=== PATIENT | female | born 1965 | race Caucasian/White ===

== ENCOUNTER 2016-08-28 17:46 | Inpatient (IN) | payer OTHER ==
[2016-08-28] MEDS ORDERED: SODIUM CHLORIDE 500 ML IV STA (19:35)
[2016-08-28 20:33] LABS: BASOPHIL 0.6 % (0-2.0); EOSINOPHIL 0.3 % (0-4.5); MCH 27.7 pg (25.7-33.7); MEAN CELL VOLUME 89.3 fl (80-96); MEAN PLT VOLUME 8.2 fl (7.5-11.1); NEUTROPHILS 77.1 % (42.8-82.8); PLATELET COUNT 108 K/MM3 (134-434); RDW 18.5 % (11.6-15.6); WHITE BLOOD COUNT 11.9 K/mm3 (4.0-10.0)
[2016-08-28 22:40] LABS: ALBUMIN 2.4 g/dl (3.4-5.0); ANION GAP 11 (8-16); BILIRUBIN,TOTAL 1.2 mg/dL (0.2-1.0); CALCIUM 9.2 mg/dL (8.5-10.1); CO2 30 mmol/L (21-32); CREATININE 3.3 mg/dL (0.55-1.02); GLUCOSE,RANDOM 111 mg/dL (74-106); SGOT/AST 29 U/L (15-37); SGPT/ALT 13 U/L (12-78); TOT PROT 6.8 g/dl (6.4-8.2)
[2016-08-28 23:05] LABS: ALK PHOS 1085 U/L (45-117)
--- NOTE | 2016-08-28 23:20 | PDOC ---
History of Present Illness - General Chief Complaint: SIRS, Suspected/Possible Stated Complaint: FEVER Time Seen by Provider: 08/28/16 19:21 History Source: Patient Exam Limitations: No Limitations - History of Present Illness Initial Comments: 08/28/16 23:15 51yo Female patient w/ significant PmHx: ESRD, Dialysis (M,W,F), Aortic Valve Replacement (2014), Anemia, HTN, Multiple Myeloma, Bone Marrow Transplant (2017 ) presents to ED c/o chronic cough, fever (103.0), weakness. Patient went to dialysis today and 1.7L of fluid removed. Patient denies any other complaints at this time. PCP- Dr. Munguia. Timing/Duration: getting worse Severity: moderate Modifying Factors: worse with: cold therapy, eating, immobilization, medication , movement, rest, other Associated Symptoms: reports: cough, fever/chills, weakness Aspirin Received prior to arrival: No: no aspirin today, unknown, 81 mg x 1, 81 mg x 2, 81 mg x 3, 81 mg x 4, 325 mg x 1, provided at home, provided by EMS, provided by ED [facility] Contraindications(Core Measure): No: Allergy, Other, Active Blding w/i 24 hrs., Plavix, Receiving Warfarin Beta Blake Contraindications(Core Measure): No: Not Prescribed, Allergy, Bradycardia (HR <60bpm), Advanced Heart Block, Pacemaker, Other Past History - Travel Traveled outside of the country in the last 30 days: No Close contact w/someone who was outside of country & ill: No - Past Medical History Allergies/Adverse Reactions: Allergies Allergy/AdvReac Type Severity Reaction Status Date / Time doxercalciferol Allergy Severe Low Blood Verified 08/28/16 18:48 [From Hectorol] Pressure Home Medications: Ambulatory Orders Hydralazine HCl [Apresoline -] 50 mg PO BID 10/16/11 Sevelamer Carbonate [Renvela -] 800 mg PO DAILY 09/02/13 Acyclovir [Zovirax -] 200 mg PO DAILY 12/25/14 Aspirin [Aspirin EC] 81 mg PO DAILY 12/25/14 Atorvastatin Ca [Lipitor] 10 mg PO HS 12/25/14 Cinacalcet HCl [Sensipar -] 90 mg PO DAILY 12/25/14 Levothyroxine [Synthroid -] 100 mcg PO DAILY 12/25/14 Metoprolol Tartrate 50 mg PO BID 12/25/14 Pomalidomide [Pomalyst] 2 mg PO DAILY 12/25/14 Vit B Cmplx No3/FA/C/Biot/Zinc [Nephplex Rx Tablet] 1 each PO DAILY 12/25/14 Clopidogrel Bisulfate [Plavix -] 75 mg PO DAILY #30 tablet 01/12/15 Ferrous Sulfate 325 mg PO DAILY #30 tablet 01/12/15 Anemia: Yes Asthma: No Cancer: Yes (multiple myeloma) Cardiac Disorders: Yes (valve replacement done in 2014) CVA: No COPD: No CHF: No Dementia: No Diabetes: No Dialysis: Yes (m/w/f) GI Disorders: No Disorders: Yes (dyalisis sun-sun-sun) HTN: Yes Hypercholesterolemia: Yes Liver Disease: No Suicide Attempt (Hx): No Seizures: Yes (one time in 2006) Thyroid Disease: Yes (hypothyroid) - Surgical History Cardiac Surgery: Yes (valve repleacement 11/19/2014) - Immunization History Immunization Up to Date: Yes - Psycho/Social/Smoking Cessation Hx Anxiety: No Suicidal Ideation: No Smoking Status: No Smoking History: Never smoked Have you smoked in the past 12 months: No Number of Cigarettes Smoked Daily: 0 Information on smoking cessation initiated: No Hx Alcohol Use: No Drug/Substance Use Hx: No Substance Use Type: None Hx Substance Use Treatment: No Review of Systems - Review of Systems Able to Perform ROS?: Yes Is the patient limited German proficient: No Constitutional: Yes: Chills, Fever, Weakness Respiratory: Yes: Cough Cardiac (ROS): No: Chest Pain ABD/GI: No: Constipated, Diarrhea, Nausea, Poor Appetite, Poor Fluid Intake, Vomiting, Abdominal cramping : No: Dysuria, Hematuria Musculoskeletal: No: Back Pain Integumentary: No: Bruising, Erythema, Sweating Neurological: No: Headache, Seizure, Ataxia, Dizziness All Other Systems: Reviewed and Negative *Physical Exam - Vital Signs Last Vital Signs Temp Pulse Resp BP Pulse Ox 99.1 F 92 H 18 139/67 99 08/28/16 17:46 08/28/16 17:46 08/28/16 17:46 08/28/16 17:46 08/28/16 17:46 - Physical Exam General Appearance: Yes: Nourished, Appropriately Dressed, Mild Distress. No: Apparent Distress, Moderate Distress, Severe Distress HEENT: positive: EOMI, JUAN JOSE, Normal ENT Inspection, Normal Voice, Symmetrical, TMs Normal, Pharynx Normal. negative: Pharyngeal Erythema, Tonsillar Exudate, Tonsillar Erythema, Nasal Congestion, Rhinorrhea, TM Bulging, TM Dull, TM Erythema Neck: positive: Trachea midline, Supple. negative: Stridor, Lymphadenopathy (R) , Lymphadenopathy (L) Respiratory/Chest: positive: Normal Breath Sounds, Decreased Breath Sounds. negative: Lungs Clear, Respiratory Distress, Accessory Muscle Use, Labored Respiration, Rapid RR, Stridor, Wheezing Cardiovascular: positive: Regular Rhythm, Regular Rate Gastrointestinal/Abdominal: positive: Normal Bowel Sounds, Soft. negative: Distended, Guarding, Rebound, Tenderness Musculoskeletal: positive: Normal Inspection. negative: CVA Tenderness Extremity: positive: Normal Capillary Refill, Normal Inspection, Normal Range of Motion. negative: Pedal Edema, Swelling, Calf Tenderness, Erythema, Inflammation Integumentary: positive: Normal Color, Dry, Warm. negative: Erythema Neurologic: positive: burlap roll coverer II-XII NML intact, Fully Oriented, Alert, Normal Mood/ Affect, Normal Response, Motor Strength 5/5 ED Treatment Course - LABORATORY CBC & Chemistry Diagram: 08/28/16 20:17 08/28/16 20:17 - ADDITIONAL ORDERS Additional order review: Laboratory Results 08/28/16 08/28/16 20:24 20:17 Sodium 139 Potassium 3.6 Chloride 98 Carbon Dioxide 30 Anion Gap 11 BUN 20 H D Creatinine 3.3 H D Creat Clearance w eGFR 14.62 Random Glucose 111 H D Lactic Acid 2.7 H* Calcium 9.2 Total Bilirubin 1.2 H D AST 29 D ALT 13 D Alkaline Phosphatase 1085 H D Creatine Kinase 21 L Total Protein 6.8 Albumin 2.4 L D 08/28/16 20:17 RBC 2.72 L MCV 89.3 MCHC 31.0 L RDW 18.5 H MPV 8.2 Neutrophils % 77.1 D Lymphocytes % 12.2 D Monocytes % 9.8 Eosinophils % 0.3 D Basophils % 0.6 - RADIOLOGY Radiology Studies Ordered: Category Date Time Status CHEST X-RAY PORTABLE* [RAD] Stat Radiology 08/28/16 19:35 Taken - Medications Given in the ED: ED Medications Discontinued Medications Generic Name Dose Route Start Last Admin Trade Name Freq PRN Reason Stop Dose Admin Sodium Chloride 500 mls @ 500 mls/hr 08/28/16 19:35 08/28/16 20:18 Normal Saline - IV 08/28/16 20:34 500 mls/hr ASDIR STA Administration *DC/Admit/Observation/Transfer Diagnosis at time of Disposition: Fever of unknown origin Leukocytosis Qualifiers: Leukocytosis type: other Qualified Code(s): D72.828 - Other elevated white blood cell count - Discharge Dispostion Condition at time of disposition: Fair Admit: Yes
[2016-08-29] MEDS ORDERED: CEFEPIME HCL 1 GM VIAL (RESTRICTED TO ID) IVPB ONE (00:56)
[2016-08-29] MEDS ORDERED: VANCOMYCIN 1,000 MG in DEXTROSE 5%-WATER - 250 ML IVPB ONE (00:57)
[2016-08-29] MEDS ORDERED: CEFEPIME 100 ML IVPB ONE (01:05)
[2016-08-29] MEDS ORDERED: VANCOMYCIN 1 GRAM (PRE-DOCKED) 250 ML IVPB ONE (01:41)
[2016-08-29 04:03] VITALS: BMI 17.8
[2016-08-29] MEDS ORDERED: ACETAMINOPHEN 325 MG TABLET (FP) PO PRN (05:27)
[2016-08-29] MEDS: LEVOTHYROXINE NA 100 MCG TABLET (FP) PO SCH (06:21)
[2016-08-29] MEDS: SEVELAMER CARBONATE 800 MG TAB (FP) PO SCH ×3 (09:00→17:36)
[2016-08-29] MEDS: hydrALAZINE HCL 50 MG TABLET (FP) PO SCH ×2 (09:07→21:44)
[2016-08-29] MEDS: METOPROLOL TARTRATE 50 MG TABLET (FP) PO SCH ×2 (09:07→21:44)
[2016-08-29] MEDS: ASPIRIN COATED 81 MG TABLET.EC PO SCH (09:08)
[2016-08-29] MEDS ORDERED: AZITHROMYCIN IVPB 500 MG in DEXTROSE 5%-WATER - 250 ML IVPB SCH (10:30)
--- NOTE | 2016-08-29 10:33 | PN ---
Progress Note (short form) - Note Progress Note: ID Consult dictated 51 year old female PMH ESRD, MM s/p bone marrow transplant 06/2016 admitted from HD with fever, cough. CXR possible retrocardiac infiltrate Pneumonia Possible sepsis secondary to pneumonia ESRD MM s/p bone marrow transplant 06/2016 S/P AVR 11/2014 Elevated Alk phos ? MM Lactic acidosis Thrombocytopenia Await c/s Stat doses vanco/ cefepime given Continue empiric zithromax/ ceftriaxone
--- NOTE | 2016-08-29 10:48 | HP ---
Admitting History and Physical - Admission Chief Complaint: fever History of Present Illness: 51yo Female patient w/ significant PmHx: ESRD, Dialysis (M,W,F), Aortic Valve Replacement (2014), Anemia, HTN, Multiple Myeloma, Bone Marrow Transplant (2016 ) presents to ED c/o chronic cough, fever (103.0), weakness. Patient went to dialysis today and 1.7L of fluid removed. Patient denies any other complaints at this time. PCP- Dr. Munguia inER WBC 11.0 lactic 2.7, plt 108 fever 100.0 got vanco and cefepime History Source: Patient, Medical Record - Past Medical History Cardiovascular: Yes: HTN, Murmur Pulmonary: Yes: Other (SOB) Renal/: Yes: Renal Failure, Hemodialysis ...: No Heme/Onc: Yes: Anemia (due to chronic disease), Thrombocytopenia, Other ( multiple myelomaa s/p BMT 2007, s/p CTx ([facility])) Infectious Disease: Yes: C-Diff - Past Surgical History Past Surgical History: Yes: AV Fistula/Graft (s/p unsuccessful AVF thrombectomy and Permacath placement 2 weeks ago. S/p angioplasty 12/24/[address] Marshall), CABG (s/p AVR 11/19/14 at [facility]), - Smoking History Smoking history: Never smoked Have you smoked in the past 12 months: No Aproximately how many cigarettes per day: 0 - Alcohol/Substance Use Hx Alcohol Use: No History of Substance Use: reports: None - Social History ADL: Independent Occupation: disabled History of Recent Travel: No Home Medications - Allergies Allergies/Adverse Reactions: Allergies Allergy/AdvReac Type Severity Reaction Status Date / Time doxercalciferol Allergy Severe Low Blood Verified 08/28/16 18:48 [From Hectorol] Pressure - Home Medications Home Medications: Ambulatory Orders Hydralazine HCl [Apresoline -] 50 mg PO BID 10/16/11 Aspirin [Aspirin EC] 81 mg PO DAILY 12/25/14 Levothyroxine [Synthroid -] 100 mcg PO DAILY 12/25/14 Metoprolol Tartrate 50 mg PO BID 12/25/14 Family Disease History - Family Disease History Family Disease History: Other: Father ( of emphysema), Mother ( of dementia), Brother (healthy and living), Sister (healthy and living) Review of Systems - Review of Systems Constitutional: reports: Fever, Weakness Physical Examination Vital Signs: Vital Signs Temperature 98.0 F 08/29/16 09:00 Pulse Rate 83 08/29/16 09:00 Respiratory Rate 18 08/29/16 09:00 Blood Pressure 125/67 08/29/16 09:00 O2 Sat by Pulse Oximetry (%) 98 08/29/16 09:00 Constitutional: Yes: Calm, Thin Cardiovascular: Yes: Regular Rate and Rhythm, Murmur, S1, S2 Respiratory: Yes: Other (crackles on right side) Gastrointestinal: Yes: Soft Extremities: Yes: Other (bruit on left arm) Edema: No Neurological: Yes: Alert, Oriented Imaging - Results Chest X-ray: Report Reviewed (posible retrocardiac infiltrate) Problem List - Problems (1) Fever, unknown origin Assessment/Plan: cultures pending seen by ID emperic abx lactic acid trending down Code(s): R50.9 - FEVER, UNSPECIFIED (2) Leukocytosis Assessment/Plan: emperic abx per ID Code(s): D72.829 - ELEVATED WHITE BLOOD CELL COUNT, UNSPECIFIED Qualifiers: Leukocytosis type: other Qualified Code(s): D72.828 - Other elevated white blood cell count (3) Anemia in ESRD (end-stage renal disease) Assessment/Plan: prbc renal iron studies Code(s): N18.6 - END STAGE RENAL DISEASE D63.1 - ANEMIA IN CHRONIC KIDNEY DISEASE (4) ESRD on hemodialysis Assessment/Plan: HD per renal Code(s): N18.6 - END STAGE RENAL DISEASE Z99.2 - DEPENDENCE ON RENAL DIALYSIS (5) Hypothyroidism Assessment/Plan: synthroid check tsh Code(s): E03.9 - HYPOTHYROIDISM, UNSPECIFIED (6) Multiple myeloma Assessment/Plan: heme eval Code(s): C90.00 - MULTIPLE MYELOMA NOT HAVING ACHIEVED REMISSION (7) S/P AVR (aortic valve replacement) Assessment/Plan: on asa alan get cardio to see patient as well Code(s): Z95.2 - PRESENCE OF PROSTHETIC HEART VALVE
--- NOTE | 2016-08-29 11:51 | CONS ---
DATE OF CONSULTATION: HISTORY: The patient is a 51-year-old female with a history of recurrent multiple myeloma, end-stage renal disease on hemodialysis, history of aortic valve replacement now evaluated for fever. The patient was receiving her hemodialysis session when she was noted to have fever to 102. She was also noted to have cough productive of whitish sputum. She was transferred to the emergency room where chest x-ray showed possible retrocardiac infiltrate. She was empirically treated with vancomycin and cefepime. The patient reports cough productive of whitish sputum. She denies any chest pain or hemoptysis. No complaints of dyspnea. She denies any shaking chills. The patient denies any ill contacts. No recent travel. No recent antibiotic therapy. She was hospitalized in June 2016 for a bone marrow transplant. PAST MEDICAL HISTORY: Positive for end-stage renal disease on hemodialysis, history of multiple myeloma status post bone marrow transplant in 2007 and again in 2016 at [place], history of aortic valve replacement for congenital heart problem 2014, hypertension, chronic anemia, hypothyroidism. PAST SURGICAL HISTORY: Status post hysterectomy, status post left AV fistula. ALLERGIES: DOXERCALCIFEROL. MEDICATIONS: Tylenol, Lopressor, Apresoline, aspirin, Synthroid. SOCIAL HISTORY: Originally from the [place] and has been living here for years. Nonsmoker, nondrinker. REVIEW OF SYSTEMS: Neurologic: No loss of consciousness, seizure activity, focal weakness. Cardiac: Status post aortic valve replacement. No chest pain or palpitations. Respiratory: As per HPI. Gastrointestinal: Positive for diarrhea. No vomiting. Genitourinary: End-stage renal disease on hemodialysis. The patient is anuric. LABORATORY DATA: White count 11.9, hematocrit 24.3, platelet count 108, lactic acid 2.7, BUN 30, creatinine 3.3. Total bilirubin 1.2, alkaline phosphatase 1085, AST 29, lactic acid 2.7. PHYSICAL EXAMINATION: General: The patient is awake and alert. She is not acutely toxic appearing in no acute distress. Vital Signs: Temperature 98, T-max 100, blood pressure 130/70, pulse 90 and regular, respirations 20 per minute. HEENT: The patient is anicteric. Positive alopecia. Oropharynx negative. Neck: Supple. No palpable nodes. Heart: Sound S1, S2. A 2/6 pansystolic murmur. Lungs: Crepitations at the left base. Abdomen: Soft. No tenderness elicited. No mass, rebound, or rigidity. Extremities: Negative for edema. AV fistula present left upper extremity. IMPRESSION: A 51-year-old female with a history of end-stage renal disease on hemodialysis, multiple myeloma status post bone marrow transplant, status post aortic valve replacement now admitted from hemodialysis with fever and cough. 1. Retrocardiac infiltrate. 2. Possible sepsis secondary to pneumonia. 3. End-stage renal disease on hemodialysis. 4. Multiple myeloma status post bone marrow transplant June 2016. 5. Status post aortic valve replacement November 2014. 6. Elevated alkaline phosphatase possibly ectopy myeloma, rule out biliary tract disease. 7. Lactic acidosis. 8. Thrombocytopenia. PLAN: Await blood cultures. Obtain sputum culture, urine Legionella, and pneumococcal antigens. Empiric antibiotic coverage with Zithromax and ceftriaxone pending cultures. Abdominal sonogram to evaluate biliary tract. We will follow. Thank you for the kind referral. FEDE DEGROOT M.D. [id number]
[2016-08-29 11:54] LABS: BASOPHIL 0.7 % (0-2.0); EOSINOPHIL 1.1 % (0-4.5); MCH 28.5 pg (25.7-33.7); MCHC 31.8 g/dl (32.0-36.0); MEAN CELL VOLUME 89.6 fl (80-96); MEAN PLT VOLUME 8.9 fl (7.5-11.1); NEUTROPHILS 75.4 % (42.8-82.8); PLATELET COUNT 85 K/MM3 (134-434); RDW 18.3 % (11.6-15.6); WHITE BLOOD COUNT 8.6 K/mm3 (4.0-10.0)
[2016-08-29] MEDS: CEFTRIAXONE 100 ML IVPB SCH (11:55)
--- NOTE | 2016-08-29 11:56 | CONSULT ---
Consult Consult Specialty:: Nephrology ( Drs. Cheema/ Ross) Referred by:: Dr. Ho Reason for Consultation:: Patient has h/o ESRD, on HD. - History of Present Illness History of Present Illness: 51yo Female patient w/ significant PmHx: ESRD, Dialysis (M,W,F), Aortic Valve Replacement (2014), Anemia, HTN, Multiple Myeloma, Recent Bone Marrow Transplant (July 2016) presents to ED c/o cough, fever (103.0), weakness. Patient went to dialysis yesterday [place] weak. And came to the ER. HD was uneventful. - History Source History Provided By: Patient, Medical Record Limitations to Obtaining History: No Limitations - Past Medical History Cardio/Vascular: Yes: HTN, Murmur Pulmonary: Yes: Other (SOB) Renal/: Yes: Renal Failure, Hemodialysis ...: No Heme/Onc: Yes: Anemia, Myeloproliferative Synd Infectious Disease: Yes: C-Diff - Past Surgical History Past Surgical History: Yes: AV Fistula/Graft (s/p unsuccessful AVF thrombectomy and Permacath placement 2 weeks ago. S/p angioplasty 12/24/[address] Marshall), CABG (s/p AVR 11/19/14 at [facility]), - Alcohol/Substance Use Hx Alcohol Use: No History of Substance Use: reports: None - Smoking History Smoking history: Never smoked Have you smoked in the past 12 months: No Aproximately how many cigarettes per day: 0 - Social History ADL: Independent Occupation: disabled History of Recent Travel: No Home Medications - Allergies Allergies/Adverse Reactions: Allergies Allergy/AdvReac Type Severity Reaction Status Date / Time doxercalciferol Allergy Severe Low Blood Verified 08/28/16 18:48 [From Hectorol] Pressure - Home Medications Home Medications: Ambulatory Orders Hydralazine HCl [Apresoline -] 50 mg PO BID 10/16/11 Aspirin [Aspirin EC] 81 mg PO DAILY 12/25/14 Levothyroxine [Synthroid -] 100 mcg PO DAILY 12/25/14 Metoprolol Tartrate 50 mg PO BID 12/25/14 Family Disease History - Family Disease History Family Disease History: Other: Father ( of emphysema), Mother ( of dementia), Brother (healthy and living), Sister (healthy and living) Review of Systems - Review of Systems Constitutional: reports: Fever, Malaise, Weakness Respiratory: reports: Cough, SOB Gastrointestinal: reports: Abdominal Pain Musculoskeletal: reports: Back Pain Neurological: reports: No Symptoms Endocrine: reports: No Symptoms Psychiatric: reports: No Symptoms Physical Exam Vital Signs: Vital Signs Temperature 98.0 F 08/29/16 09:00 Pulse Rate 83 08/29/16 09:00 Respiratory Rate 18 08/29/16 09:00 Blood Pressure 125/67 08/29/16 09:00 O2 Sat by Pulse Oximetry (%) 98 08/29/16 09:00 Constitutional: Yes: Anxious HENT: Yes: Normocephalic Cardiovascular: Yes: S1, S2 Respiratory: Yes: Regular, Diminished, Rales, Rhonchi Gastrointestinal: Yes: Normal Bowel Sounds, Soft Renal/: No: CVA Tenderness - Left, CVA Tenderness - Right Musculoskeletal: Yes: Back Pain, Muscle Pain Neurological: Yes: Alert, Oriented Psychiatric: Yes: Oriented Problem List - Problems (1) Fever, unknown origin Code(s): R50.9 - FEVER, UNSPECIFIED (2) Leukocytosis Code(s): D72.829 - ELEVATED WHITE BLOOD CELL COUNT, UNSPECIFIED Qualifiers: Leukocytosis type: other Qualified Code(s): D72.828 - Other elevated white blood cell count (3) Anemia in ESRD (end-stage renal disease) Code(s): N18.6 - END STAGE RENAL DISEASE D63.1 - ANEMIA IN CHRONIC KIDNEY DISEASE (4) ESRD on hemodialysis Code(s): N18.6 - END STAGE RENAL DISEASE Z99.2 - DEPENDENCE ON RENAL DIALYSIS (5) Hypertension Code(s): I10 - ESSENTIAL (PRIMARY) HYPERTENSION (6) Multiple myeloma Code(s): C90.00 - MULTIPLE MYELOMA NOT HAVING ACHIEVED REMISSION Assessment/Plan 51 y/o female admitted with fever and cough, and possible Acute respiratory Infection. Started on Antibiotics. Profound Anemia, in this patient with MM, and recent BM transplant should alert us to look for unusual causes for the anemia. ESRD, next HD tomorrow. Will transfuse on HD if the Hgb remains low. Concur with the Abx course. Thank you. Preeti Cheema MD
[2016-08-29] MEDS: AZITHROMYCIN IVPB 500 MG/250 ML D5W PRE-DOCKED IVPB SCH (12:40)
--- NOTE | 2016-08-29 14:22 | CON.CARD ---
Consult Consult Specialty:: cardiology Referred by:: Vic Reason for Consultation:: Aortic valve replacement - History of Present Illness Chief Complaint: Fever and cough History of Present Illness: The patient is a 51-year-old female, with a history of hypertension, end-stage renal disease on hemodialysis, status post bioprosthetic aortic valve replacement in 2014, multiple myeloma, status post bone marrow transplant 06/19, chronic anemia, now presenting with high grade fever and a chronic cough. The patient denied chills and right wrist. Also denied shortness of breath, chest pains, palpitations. The patient is currently comfortable, sitting at the bedside. - History Source History Provided By: Patient, Medical Record Limitations to Obtaining History: No Limitations - Past Medical History Cardio/Vascular: Yes: HTN, Murmur Pulmonary: Yes: Other (SOB) Renal/: Yes: Renal Failure, Hemodialysis ...: No Infectious Disease: Yes: C-Diff - Past Surgical History Past Surgical History: Yes: AV Fistula/Graft (s/p unsuccessful AVF thrombectomy and Permacath placement 2 weeks ago. S/p angioplasty 12/24/[address] Marshall), CABG (s/p AVR 11/19/14 at [facility]), - Alcohol/Substance Use Hx Alcohol Use: No History of Substance Use: reports: None - Smoking History Smoking history: Never smoked Have you smoked in the past 12 months: No Aproximately how many cigarettes per day: 0 - Social History ADL: Independent Occupation: disabled History of Recent Travel: No Home Medications - Allergies Allergies/Adverse Reactions: Allergies Allergy/AdvReac Type Severity Reaction Status Date / Time doxercalciferol Allergy Severe Low Blood Verified 08/28/16 18:48 [From Hectorol] Pressure - Home Medications Home Medications: Ambulatory Orders Hydralazine HCl [Apresoline -] 50 mg PO BID 10/16/11 Aspirin [Aspirin EC] 81 mg PO DAILY 12/25/14 Levothyroxine [Synthroid -] 100 mcg PO DAILY 12/25/14 Metoprolol Tartrate 50 mg PO BID 12/25/14 Family Disease History - Family Disease History Family Disease History: Other: Father ( of emphysema), Mother ( of dementia), Brother (healthy and living), Sister (healthy and living) Review of Systems - Review of Systems Constitutional: reports: Fever Eyes: reports: No Symptoms HENT: reports: No Symptoms Neck: reports: No Symptoms Cardiovascular: reports: No Symptoms Respiratory: reports: Cough Gastrointestinal: reports: No Symptoms Genitourinary: reports: No Symptoms Breasts: reports: No Symptoms Reported Musculoskeletal: reports: Muscle Weakness Integumentary: reports: No Symptoms Neurological: reports: No Symptoms Endocrine: reports: No Symptoms Hematology/Lymphatic: reports: No Symptoms Psychiatric: reports: No Symptoms - Risk Factors Known Risk Factors: Yes: Hypertension Vital Signs: Vital Signs Temperature 98.0 F 08/29/16 09:00 Pulse Rate 83 08/29/16 09:00 Respiratory Rate 18 08/29/16 09:00 Blood Pressure 125/67 08/29/16 09:00 O2 Sat by Pulse Oximetry (%) 98 08/29/16 09:00 Constitutional: Yes: No Distress, Calm Eyes: Yes: WNL HENT: Yes: WNL Neck: Yes: WNL Respiratory: Yes: WNL Gastrointestinal: Yes: WNL Renal/: Yes: WNL Cardiovascular: Yes: Regular Rate and Rhythm JVD: No Carotid Bruit: No PMI: Non-Displaced Heart Sounds: Yes: S1, S2 Murmur: Yes: Systolic Murmur, Grade 2 Musculoskeletal: Yes: WNL Extremities: Yes: WNL Edema: No Peripheral Pulses WNL: Yes (normal pulses) Integumentary: Yes: WNL Neurological: Yes: WNL ...Motor Strength: WNL Psychiatric: Yes: WNL - Other Data Labs, Other Data: CBC, BMP 08/29/16 11:15 Assessment/Plan 51-year-old female with multiple medical problems, status post bioprosthetic aortic valve replacement in 2014, immunocompromised, now presenting with fevers and a chronic cough. Blood cultures are pending. The patient is hemodynamically stable and fairly comfortable. Would continue current regimen. Waiting for blood culture results. There is no clinical evidence of endocarditis at this point. Please repeat the echocardiogram to reevaluate the prostatic valve. Will follow.
--- NOTE | 2016-08-29 21:36 | PN ---
Progress Note (short form) - Note Progress Note: Consult dictated 51 year old s/p bone marrow transplant in 2007 and on June 28, 2016. On pomalidomide therapy post transplant. Patient presents with fever to 103 , cough and possible pulmonary infiltrate. ESRD on H.D. and s/p bioprosthetic aortic valve replacement in 2014. [facility] need to check with [facility] re details of prior treatment . Has markedly elevated alk phos ( >1000) and in 2014 - level was 229. (Note myeloma classically does not cause alk phos elevation. --?? Pagets, , ??? renal osteodystrophy, ?? other --Check GGTP) Thrombocytopenia may be secondary to myeloma, may be secondary to recent transplant , may be secondary to pomalidomide with infection super-imposed. Similarly anemia may be secondary to myeloma, ,ESRD, s/p transplant , infection. Will need to get base line levels from [facility].
[2016-08-30] MEDS: LEVOTHYROXINE NA 100 MCG TABLET (FP) PO SCH (06:01)
--- NOTE | 2016-08-30 06:30 | CONS ---
DATE OF CONSULTATION: 08/29/2016 HISTORY OF PRESENT ILLNESS: This is a 51-year-old woman . She has a history of multiple myeloma status post transplants in 2007 and then in June,. She has a history of end-stage renal disease on dialysis. She has a history of an aortic valve replacement with bioprosthetic valve. She has a history of anemia, hypertension. She presented with cough and fever to 103 degrees. She was seen in dialysis and was advised admission. PAST HISTORY: As aforementioned, end-stage renal disease, aortic valve replacement bioprosthetic valve in 2014, myeloma transplants in June 28, 2016, and 2008, multiple myeloma. ALLERGIES: Include DOXERCALCIFEROL. MEDICINES ON ADMISSION: Hydralazine, Renvela, Zovirax, aspirin, Lipitor, Sensipar, Synthroid, metoprolol, pomalidomide, vitamin B, Plavix, and iron. REVIEW OF SYSTEMS: No headaches, diplopia, cough, whitish sputum. No chest pain. Some GI symptoms with diarrhea. No significant bone pains. PAST SURGICAL HISTORY: Includes aortic valve replacement November 19, 2014. SOCIAL HISTORY: Patient is a nonsmoker/nondrinker. CURRENT PHYSICAL EXAMINATION: Vital signs: BP 104/63, pulse 71, respiratory rate 16, temperature 98.2. HEENT: Alopecia, SORAIDA, EOM intact. Oropharynx unremarkable. Lungs: Relatively clear. Cardiac: RSR. Sternal median sternotomy. Breasts: Nodularity bilaterally. Abdomen: With ventral hernia. Extremities: No significant edema. LABORATORY: WBC 8.6, hematocrit 24, platelets 85,000, 75 neutrophils. Chemistries 139 sodium K36, chloride 98, CO2 of 30, BUN 20, creatinine 3.3 on dialysis, calcium 9.2, bilirubin 1.2, lactate 2.7, AST 29, ALT 13, alkaline phosphatase 10.85, CPK 21, protein 6.8, albumin 2.4. It should be noted that in 2014, alkaline phosphatase was 229. IMPRESSION: This is a 51-year-old with history of multiple myeloma, status post transplants in 2007 and again June 28, 2016, status post bioprosthetic aortic valve replacement, who enters with cough, questionable infiltrate, and 103 temperature. Patient is with end-stage renal disease on hemodialysis. Patient has elevation of alkaline phosphatase which may be bone related. She may have underlying Pagets or other etiologies. Patient is also with hematocrit of 24% and platelet count of 108 and 85,000. This may be secondary to pomalidomide and/or infection and/or post transplant. PLAN: Monitor CBC. Need to get details of prior laboratories from [facility]. Check GGTP. RADHA REDD M.D. [id number]
[2016-08-30 07:21] LABS: BASOPHIL 1.2 % (0-2.0); EOSINOPHIL 4.2 % (0-4.5); MCH 28.5 pg (25.7-33.7); MCHC 32.6 g/dl (32.0-36.0); MEAN CELL VOLUME 87.5 fl (80-96); MEAN PLT VOLUME 8.8 fl (7.5-11.1); NEUTROPHILS 66.1 % (42.8-82.8); PLATELET COUNT 86 K/MM3 (134-434); RDW 18.9 % (11.6-15.6)
[2016-08-30 07:52] LABS: ALBUMIN 2.1 g/dl (3.4-5.0); ANION GAP 12 (8-16); CALCIUM 8.9 mg/dL (8.5-10.1); CO2 26 mmol/L (21-32); GLUCOSE,RANDOM 72 mg/dL (74-106)
[2016-08-30 07:54] LABS: THYROID STIMULATING HORMONE 0.82 uIU/ml (0.358-3.74)
[2016-08-30 08:00] LABS: ALK PHOS 962 U/L (45-117); BILIRUBIN,TOTAL 0.8 mg/dL (0.2-1.0); CREATININE 5.1 mg/dL (0.55-1.02); SGOT/AST 27 U/L (15-37); SGPT/ALT 12 U/L (12-78); TOT PROT 6.1 g/dl (6.4-8.2)
--- NOTE | 2016-08-30 08:03 | PN ---
Progress Note, Physician - Current Medication List Current Medications: Active Medications Acetaminophen (Tylenol -) 650 mg PO Q6H PRN PRN Reason: FEVER OR PAIN Aspirin (Ecotrin -) 81 mg PO DAILY [facility] Last Admin: 08/29/16 09:08 Dose: 81 mg Azithromycin (Zithromax 500mg Ivpb (Pre-Docked)) 500 mg IVPB DAILY [facility] Last Admin: 08/29/16 12:40 Dose: 500 mg Epoetin Bg (Procrit -) 10,000 unit SQ ONCE ONE Stop: 08/30/16 12:04 Hydralazine HCl (Apresoline -) 50 mg PO BID [facility] Last Admin: 08/29/16 21:44 Dose: 50 mg Ceftriaxone Sodium (Rocephin 2gm Ivpb (Pre-Docked)) 100 mls @ 200 mls/hr IVPB DAILY [facility] Last Admin: 08/29/16 11:55 Dose: 200 mls/hr Levothyroxine Sodium (Synthroid -) 100 mcg PO DAILY@0700 [facility] Last Admin: 08/30/16 06:01 Dose: 100 mcg Metoprolol Tartrate (Lopressor -) 50 mg PO BID [facility] Last Admin: 08/29/16 21:44 Dose: 50 mg Sevelamer Carbonate (Renvela -) 800 mg PO TIDCM [facility] Last Admin: 08/29/16 17:36 Dose: Not Given - Objective Vital Signs: Vital Signs Temperature 98.1 F 08/30/16 06:58 Pulse Rate 79 08/30/16 06:58 Respiratory Rate 20 08/30/16 06:58 Blood Pressure 127/69 08/30/16 06:58 O2 Sat by Pulse Oximetry (%) 100 08/29/16 21:00 Cardiovascular: Yes: Murmur, S1, S2 Respiratory: Yes: Diminished, On Nasal O2, Rhonchi Gastrointestinal: Yes: Normal Bowel Sounds, Soft Labs: CBC, BMP 08/30/16 05:35 Problem List - Problems (1) Anemia in ESRD (end-stage renal disease) Assessment/Plan: S/P PRBC MONITOR LABS Code(s): N18.6 - END STAGE RENAL DISEASE D63.1 - ANEMIA IN CHRONIC KIDNEY DISEASE (2) ESRD on hemodialysis Assessment/Plan: RENAL ON CASE DIALYSIS Code(s): N18.6 - END STAGE RENAL DISEASE Z99.2 - DEPENDENCE ON RENAL DIALYSIS (3) Multiple myeloma Assessment/Plan: PER ONCOLOGY Code(s): C90.00 - MULTIPLE MYELOMA NOT HAVING ACHIEVED REMISSION (4) S/P AVR (aortic valve replacement) Assessment/Plan: ECHO BC Code(s): Z95.2 - PRESENCE OF PROSTHETIC HEART VALVE (5) Pneumonia Assessment/Plan: IV ABX ID ON CASE F/U IMAGING Code(s): J18.9 - PNEUMONIA, UNSPECIFIED ORGANISM (6) Alkaline phosphatase elevation Assessment/Plan: ONCOLOGY ON CASE AWAIT RECORDS FROM [facility] Code(s): R74.8 - ABNORMAL LEVELS OF OTHER SERUM ENZYMES
[2016-08-30 08:10] LABS: FERRITIN 1984.046 ng/ml (6.9-282.5)
[2016-08-30] MEDS: SEVELAMER CARBONATE 800 MG TAB (FP) PO SCH ×3 (08:30→17:41)
[2016-08-30] MEDS ORDERED: EPOETIN ALFA 10,000 UNIT/1 ML VIAL IVPUSH ONE (12:03)
--- NOTE | 2016-08-30 12:25 | PN ---
Progress Note, Physician Chief Complaint: The patient is feeling a little better. Still coughing. Afebrile. History of Present Illness: 51yo Female patient w/ significant PmHx: ESRD, Dialysis (M,W,F), Aortic Valve Replacement (2014), Anemia, HTN, Multiple Myeloma, Recent Bone Marrow Transplant (July 2016) Dr. Smith's notes reviewed. - Current Medication List Current Medications: Active Medications Acetaminophen (Tylenol -) 650 mg PO Q6H PRN PRN Reason: FEVER OR PAIN Aspirin (Ecotrin -) 81 mg PO DAILY [facility] Last Admin: 08/29/16 09:08 Dose: 81 mg Azithromycin (Zithromax 500mg Ivpb (Pre-Docked)) 500 mg IVPB DAILY [facility] Last Admin: 08/29/16 12:40 Dose: 500 mg Hydralazine HCl (Apresoline -) 50 mg PO BID [facility] Last Admin: 08/29/16 21:44 Dose: 50 mg Ceftriaxone Sodium (Rocephin 2gm Ivpb (Pre-Docked)) 100 mls @ 200 mls/hr IVPB DAILY [facility] Last Admin: 08/29/16 11:55 Dose: 200 mls/hr Levothyroxine Sodium (Synthroid -) 100 mcg PO DAILY@0700 [facility] Last Admin: 08/30/16 06:01 Dose: 100 mcg Metoprolol Tartrate (Lopressor -) 50 mg PO BID [facility] Last Admin: 08/29/16 21:44 Dose: 50 mg Sevelamer Carbonate (Renvela -) 800 mg PO TIDCM [facility] Last Admin: 08/30/16 08:30 Dose: Not Given - Objective Vital Signs: Vital Signs Temperature 98 F 08/30/16 10:00 Pulse Rate 81 08/30/16 10:00 Respiratory Rate 20 08/30/16 10:00 Blood Pressure 107/62 08/30/16 10:00 O2 Sat by Pulse Oximetry (%) 100 08/29/16 21:00 Constitutional: Yes: Calm, Anxious, Pallor Eyes: Yes: Conjunctiva Clear Neck: Yes: Trachea Midline Cardiovascular: Yes: S1, S2 Respiratory: Yes: Diminished, Rhonchi, SOB Gastrointestinal: Yes: Normal Bowel Sounds Labs: CBC, BMP 08/30/16 05:35 08/30/16 05:35 Problem List - Problems (1) Fever, unknown origin Code(s): R50.9 - FEVER, UNSPECIFIED (2) Leukocytosis Code(s): D72.829 - ELEVATED WHITE BLOOD CELL COUNT, UNSPECIFIED Qualifiers: Leukocytosis type: other Qualified Code(s): D72.828 - Other elevated white blood cell count (3) Anemia in ESRD (end-stage renal disease) Code(s): N18.6 - END STAGE RENAL DISEASE D63.1 - ANEMIA IN CHRONIC KIDNEY DISEASE (4) ESRD on hemodialysis Code(s): N18.6 - END STAGE RENAL DISEASE Z99.2 - DEPENDENCE ON RENAL DIALYSIS (5) Hypertension Code(s): I10 - ESSENTIAL (PRIMARY) HYPERTENSION (6) Multiple myeloma Code(s): C90.00 - MULTIPLE MYELOMA NOT HAVING ACHIEVED REMISSION Assessment/Plan 51 y/o female admitted with fever and cough, and possible Acute respiratory Infection. Started on Antibiotics. So far Serologyfor atypical Pneumonia and Cultures are negative. Profound Anemia, possibly due to MM. Hematology on board. ESRD, next HD tomorrow. Will transfuse on HD if the Hgb remains low. Concur with the Abx course. Thank you. Preeti Cheema MD
--- NOTE | 2016-08-30 12:57 | PN ---
Progress Note, Physician Chief Complaint: The patient is comfortable. She offers no new complaints. 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 The patient denied chills and right wrist. Also denied shortness of breath, chest pains, palpitations. The patient is currently comfortable, sitting at the bedside. - Current Medication List Current Medications: Active Medications Acetaminophen (Tylenol -) 650 mg PO Q6H PRN PRN Reason: FEVER OR PAIN Aspirin (Ecotrin -) 81 mg PO DAILY [facility] Last Admin: 08/29/16 09:08 Dose: 81 mg Azithromycin (Zithromax 500mg Ivpb (Pre-Docked)) 500 mg IVPB DAILY [facility] Last Admin: 08/29/16 12:40 Dose: 500 mg Hydralazine HCl (Apresoline -) 50 mg PO BID [facility] Last Admin: 08/29/16 21:44 Dose: 50 mg Ceftriaxone Sodium (Rocephin 2gm Ivpb (Pre-Docked)) 100 mls @ 200 mls/hr IVPB DAILY [facility] Last Admin: 08/29/16 11:55 Dose: 200 mls/hr Levothyroxine Sodium (Synthroid -) 100 mcg PO DAILY@0700 [facility] Last Admin: 08/30/16 06:01 Dose: 100 mcg Metoprolol Tartrate (Lopressor -) 50 mg PO BID [facility] Last Admin: 08/29/16 21:44 Dose: 50 mg Sevelamer Carbonate (Renvela -) 800 mg PO TIDCM [facility] Last Admin: 08/30/16 08:30 Dose: Not Given - Objective Vital Signs: Vital Signs Temperature 98 F 08/30/16 10:00 Pulse Rate 81 08/30/16 10:00 Respiratory Rate 20 08/30/16 10:00 Blood Pressure 107/62 08/30/16 10:00 O2 Sat by Pulse Oximetry (%) 100 08/29/16 21:00 Constitutional: Yes: Well Nourished, No Distress Eyes: Yes: WNL HENT: Yes: WNL Cardiovascular: Yes: WNL, Regular Rate and Rhythm, S1, S2 Respiratory: Yes: Other (Decreased breath sounds left base. Otherwise clear to auscultation) Gastrointestinal: Yes: WNL ...Rectal Exam: Yes: Deferred Musculoskeletal: Yes: WNL Extremities: Yes: WNL Edema: No Peripheral Pulses WNL: Yes (2+ pulses bilaterally) Integumentary: Yes: WNL Neurological: Yes: WNL Labs: CBC, BMP 08/30/16 05:35 08/30/16 05:35 Assessment/Plan The patient has been stable from the cardiac standpoint. She has been afebrile. Chest CT revealing left lower lobe pneumonia. Echocardiogram is pending. Continue treatment for pneumonia. Continue current regimen. The patient is stable from the cardiac standpoint.
[2016-08-30] MEDS: CEFTRIAXONE 100 ML IVPB SCH (17:12)
[2016-08-30] MEDS: AZITHROMYCIN IVPB 500 MG/250 ML D5W PRE-DOCKED IVPB SCH (17:12)
[2016-08-30] MEDS: ASPIRIN COATED 81 MG TABLET.EC PO SCH (17:13)
[2016-08-30] MEDS: hydrALAZINE HCL 50 MG TABLET (FP) PO SCH ×3 (17:13→22:35)
[2016-08-30] MEDS: METOPROLOL TARTRATE 50 MG TABLET (FP) PO SCH ×2 (17:13→21:28)
[2016-08-31 06:07] LABS: SERUM IRON 49 ug/dL (27-159); TOTAL IRON BINDING CAPACITY 124 ug/dL (250-450); UIBC 75 ug/dL (131-425)
[2016-08-31] MEDS: LEVOTHYROXINE NA 100 MCG TABLET (FP) PO SCH (06:14)
[2016-08-31 07:45] LABS: ALBUMIN 2.2 g/dl (3.4-5.0); ANION GAP 8 (8-16); CALCIUM 9.4 mg/dL (8.5-10.1); CO2 32 mmol/L (21-32); GLUCOSE,RANDOM 76 mg/dL (74-106)
[2016-08-31 07:54] LABS: BASOPHIL 1.1 % (0-2.0); EOSINOPHIL 4.1 % (0-4.5); MCH 28.5 pg (25.7-33.7); MCHC 32.7 g/dl (32.0-36.0); MEAN CELL VOLUME 87.3 fl (80-96); MEAN PLT VOLUME 8.5 fl (7.5-11.1); NEUTROPHILS 61.1 % (42.8-82.8); PLATELET COUNT 91 K/MM3 (134-434); RDW 19.1 % (11.6-15.6); WHITE BLOOD COUNT 5.1 K/mm3 (4.0-10.0)
[2016-08-31 07:59] LABS: BILIRUBIN,TOTAL 0.6 mg/dL (0.2-1.0); CREATININE 3.2 mg/dL (0.55-1.02); SGOT/AST 40 U/L (15-37); SGPT/ALT 17 U/L (12-78); TOT PROT 6.3 g/dl (6.4-8.2)
[2016-08-31 08:12] LABS: ALK PHOS 1080 U/L (45-117)
[2016-08-31] MEDS: SEVELAMER CARBONATE 800 MG TAB (FP) PO SCH ×3 (09:00→17:10)
[2016-08-31] MEDS: AZITHROMYCIN IVPB 500 MG/250 ML D5W PRE-DOCKED IVPB SCH (09:44)
[2016-08-31] MEDS: ASPIRIN COATED 81 MG TABLET.EC PO SCH (09:44)
[2016-08-31] MEDS: hydrALAZINE HCL 50 MG TABLET (FP) PO SCH ×2 (09:44→21:47)
[2016-08-31] MEDS: CEFTRIAXONE 100 ML IVPB SCH (09:44)
[2016-08-31] MEDS: METOPROLOL TARTRATE 50 MG TABLET (FP) PO SCH ×2 (09:44→21:47)
--- NOTE | 2016-08-31 11:18 | EKG ---
Test Reason : Blood Pressure : / mmHG Vent. Rate : 089 BPM Atrial Rate : 089 BPM P-R Int : 146 ms QRS Dur : 084 ms QT Int : 438 ms P-R-T Axes : 070 018 029 degrees QTc Int : 532 ms NORMAL SINUS RHYTHM POSSIBLE LEFT ATRIAL ENLARGEMENT NONSPECIFIC T WAVE ABNORMALITY PROLONGED QT ABNORMAL ECG WHEN COMPARED WITH ECG OF 04-JAN-2015 17:36, NONSPECIFIC T WAVE ABNORMALITY HAS REPLACED INVERTED T WAVES IN LATERAL LEADS Confirmed by KAYLIN GARCIA, WILIAN ([id number]) on 08/31/2016 11:17:27 AM Referred By: Confirmed By:WILIAN EWING MD
--- NOTE | 2016-08-31 11:39 | PN ---
Progress Note, Physician Chief Complaint: complaining of cough and loose frequent BM - Current Medication List Current Medications: Active Medications Acetaminophen (Tylenol -) 650 mg PO Q6H PRN PRN Reason: FEVER OR PAIN Aspirin (Ecotrin -) 81 mg PO DAILY [facility] Last Admin: 08/31/16 09:44 Dose: 81 mg Azithromycin (Zithromax 500mg Ivpb (Pre-Docked)) 500 mg IVPB DAILY [facility] Last Admin: 08/31/16 09:44 Dose: 500 mg Hydralazine HCl (Apresoline -) 50 mg PO BID [facility] Last Admin: 08/31/16 09:44 Dose: 50 mg Ceftriaxone Sodium (Rocephin 2gm Ivpb (Pre-Docked)) 100 mls @ 200 mls/hr IVPB DAILY [facility] Last Admin: 08/31/16 09:44 Dose: 200 mls/hr Levothyroxine Sodium (Synthroid -) 100 mcg PO DAILY@0700 [facility] Last Admin: 08/31/16 06:14 Dose: 100 mcg Metoprolol Tartrate (Lopressor -) 50 mg PO BID [facility] Last Admin: 08/31/16 09:44 Dose: 50 mg Sevelamer Carbonate (Renvela -) 800 mg PO TIDCM [facility] Last Admin: 08/31/16 09:00 Dose: Not Given - Objective Vital Signs: Vital Signs Temperature 98.9 F 08/31/16 10:00 Pulse Rate 83 08/31/16 10:00 Respiratory Rate 18 08/31/16 10:00 Blood Pressure 131/73 08/31/16 10:00 O2 Sat by Pulse Oximetry (%) 97 08/31/16 09:00 Constitutional: Yes: Calm Neck: Yes: Trachea Midline Cardiovascular: Yes: Regular Rate and Rhythm, S1, S2 Respiratory: Yes: Diminished (on left side) Gastrointestinal: Yes: Normal Bowel Sounds, Soft Edema: No Neurological: Yes: Alert, Oriented Labs: CBC, BMP 08/31/16 05:35 08/31/16 05:35 Problem List - Problems (1) Alkaline phosphatase elevation Assessment/Plan: ultrasound of liver noted inc GGTP gi eval heme note reviewed renal on board also complaining of diarrhea c diff negative Code(s): R74.8 - ABNORMAL LEVELS OF OTHER SERUM ENZYMES (2) Fever, unknown origin Assessment/Plan: cultures negative no fever abx will get ID for FU Code(s): R50.9 - FEVER, UNSPECIFIED (3) Leukocytosis Assessment/Plan: emperic abx per ID ID FU today wbc count trending down Code(s): D72.829 - ELEVATED WHITE BLOOD CELL COUNT, UNSPECIFIED Qualifiers: Leukocytosis type: other Qualified Code(s): D72.828 - Other elevated white blood cell count (4) Anemia in ESRD (end-stage renal disease) Assessment/Plan: HD per renal eopgen Code(s): N18.6 - END STAGE RENAL DISEASE D63.1 - ANEMIA IN CHRONIC KIDNEY DISEASE (5) ESRD on hemodialysis Assessment/Plan: HD per renal Code(s): N18.6 - END STAGE RENAL DISEASE Z99.2 - DEPENDENCE ON RENAL DIALYSIS (6) Hypothyroidism Assessment/Plan: synthroid tsh ok Code(s): E03.9 - HYPOTHYROIDISM, UNSPECIFIED (7) Multiple myeloma Assessment/Plan: heme noted reviwed Code(s): C90.00 - MULTIPLE MYELOMA NOT HAVING ACHIEVED REMISSION (8) S/P AVR (aortic valve replacement) Assessment/Plan: on asa cardio consult noted Code(s): Z95.2 - PRESENCE OF PROSTHETIC HEART VALVE
--- NOTE | 2016-08-31 14:00 | PN ---
Progress Note, Physician Chief Complaint: Still coughing. Low grade fever persists. Loos and frequent BMs For GI evaluation. No chest pains. No shortness of breath. - Current Medication List Current Medications: Active Medications Acetaminophen (Tylenol -) 650 mg PO Q6H PRN PRN Reason: FEVER OR PAIN Aspirin (Ecotrin -) 81 mg PO DAILY [facility] Last Admin: 08/31/16 09:44 Dose: 81 mg Azithromycin (Zithromax 500mg Ivpb (Pre-Docked)) 500 mg IVPB DAILY [facility] Last Admin: 08/31/16 09:44 Dose: 500 mg Hydralazine HCl (Apresoline -) 50 mg PO BID [facility] Last Admin: 08/31/16 09:44 Dose: 50 mg Ceftriaxone Sodium (Rocephin 2gm Ivpb (Pre-Docked)) 100 mls @ 200 mls/hr IVPB DAILY [facility] Last Admin: 08/31/16 09:44 Dose: 200 mls/hr Levothyroxine Sodium (Synthroid -) 100 mcg PO DAILY@0700 [facility] Last Admin: 08/31/16 06:14 Dose: 100 mcg Metoprolol Tartrate (Lopressor -) 50 mg PO BID [facility] Last Admin: 08/31/16 09:44 Dose: 50 mg Sevelamer Carbonate (Renvela -) 800 mg PO TIDCM [facility] Last Admin: 08/31/16 11:39 Dose: Not Given - Objective Vital Signs: Vital Signs Temperature 98.9 F 08/31/16 10:00 Pulse Rate 83 08/31/16 10:00 Respiratory Rate 18 08/31/16 10:00 Blood Pressure 131/73 08/31/16 10:00 O2 Sat by Pulse Oximetry (%) 97 08/31/16 09:00 Constitutional: Yes: Calm Eyes: Yes: Conjunctiva Clear HENT: Yes: Normocephalic Neck: Yes: Supple, Trachea Midline Cardiovascular: Yes: S1, S2 Respiratory: Yes: Regular, Diminished, Rales, Rhonchi Gastrointestinal: Yes: Normal Bowel Sounds, Soft Extremities: Yes: WNL Labs: CBC, BMP 08/31/16 05:35 08/31/16 05:35 Problem List - Problems (1) Fever, unknown origin Code(s): R50.9 - FEVER, UNSPECIFIED (2) Leukocytosis Code(s): D72.829 - ELEVATED WHITE BLOOD CELL COUNT, UNSPECIFIED Qualifiers: Leukocytosis type: other Qualified Code(s): D72.828 - Other elevated white blood cell count (3) Anemia in ESRD (end-stage renal disease) Code(s): N18.6 - END STAGE RENAL DISEASE D63.1 - ANEMIA IN CHRONIC KIDNEY DISEASE (4) ESRD on hemodialysis Code(s): N18.6 - END STAGE RENAL DISEASE Z99.2 - DEPENDENCE ON RENAL DIALYSIS (5) Hypertension Code(s): I10 - ESSENTIAL (PRIMARY) HYPERTENSION (6) Multiple myeloma Code(s): C90.00 - MULTIPLE MYELOMA NOT HAVING ACHIEVED REMISSION Assessment/Plan 51 y/o female admitted with fever and cough, and possible Acute respiratory Infection. IV Abx well tolerated. Diarrhea new development. For GI evaluation. Profound Anemia, possibly due to MM. Hematology on board. ESRD, next HD tomorrow. Will transfuse on HD if the Hgb remains low. Concur with the Abx course. Thank you. Preeti Cheema MD
--- NOTE | 2016-08-31 14:09 | PN ---
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 The patient denied chills and right wrist. Also denied shortness of breath, chest pains, palpitations. The patient is currently comfortable, sitting at the bedside. - Current Medication List Current Medications: Active Medications Acetaminophen (Tylenol -) 650 mg PO Q6H PRN PRN Reason: FEVER OR PAIN Aspirin (Ecotrin -) 81 mg PO DAILY [facility] Last Admin: 08/31/16 09:44 Dose: 81 mg Azithromycin (Zithromax 500mg Ivpb (Pre-Docked)) 500 mg IVPB DAILY [facility] Last Admin: 08/31/16 09:44 Dose: 500 mg Hydralazine HCl (Apresoline -) 50 mg PO BID [facility] Last Admin: 08/31/16 09:44 Dose: 50 mg Ceftriaxone Sodium (Rocephin 2gm Ivpb (Pre-Docked)) 100 mls @ 200 mls/hr IVPB DAILY [facility] Last Admin: 08/31/16 09:44 Dose: 200 mls/hr Levothyroxine Sodium (Synthroid -) 100 mcg PO DAILY@0700 [facility] Last Admin: 08/31/16 06:14 Dose: 100 mcg Metoprolol Tartrate (Lopressor -) 50 mg PO BID [facility] Last Admin: 08/31/16 09:44 Dose: 50 mg Sevelamer Carbonate (Renvela -) 800 mg PO TIDCM [facility] Last Admin: 08/31/16 11:39 Dose: Not Given - Objective Vital Signs: Vital Signs Temperature 98.9 F 08/31/16 10:00 Pulse Rate 83 08/31/16 10:00 Respiratory Rate 18 08/31/16 10:00 Blood Pressure 131/73 08/31/16 10:00 O2 Sat by Pulse Oximetry (%) 97 08/31/16 09:00 Constitutional: Yes: No Distress, Calm Eyes: Yes: WNL HENT: Yes: WNL Neck: Yes: WNL Cardiovascular: Yes: WNL, Regular Rate and Rhythm, Murmur, S1, S2 Respiratory: Yes: WNL Gastrointestinal: Yes: WNL ...Rectal Exam: Yes: Deferred Musculoskeletal: Yes: WNL Extremities: Yes: WNL Edema: No Peripheral Pulses WNL: Yes Peripheral Pulses: Left Radial: 2+, Right Radial: 2+, Left Doralis Pedis: 2+, Right Dorsalis Pedis: 2+, Left Femoral: 2+, Right Femoral: 2+ Integumentary: Yes: WNL Neurological: Yes: WNL ...Motor Strength: WNL Labs: CBC, BMP 08/31/16 05:35 08/31/16 05:35 Assessment/Plan The patient has been stable from the cardiac standpoint. She reports no cardiac symptoms. She is afebrile. White counts are normalizing. The patient had a transthoracic echo which revealed normal left ventricular systolic function. The prostatic aortic valve was not well visualized. There is a suspicion for a mitral valve vegetation. Blood cultures are negative. Doubt endocarditis. Would consider a SHAHIDA if the fever recurs despite antibiotic treatment. Will follow ID recommendations.
--- NOTE | 2016-08-31 17:12 | PN ---
Progress Note (short form) - Note Progress Note: Patient seen and examined feels better Last Vital Signs Temp Pulse Resp BP Pulse Ox 99.5 F 74 16 108/59 97 08/31/16 14:30 08/31/16 14:30 08/31/16 14:30 08/31/16 14:30 08/31/16 09:00 Oropharynx: No thrush, No mucositis Cor: RSR, No murmurs, No gallops Lungs: Clear to P&A Abd: Soft, Normal bowel sounds, No organomegaly Ext:No significant edema Abnormal Lab Results 08/30/16 08/31/16 08/31/16 05:35 05:35 05:35 RBC 3.18 L Hgb 9.1 L Hct 27.8 L RDW 19.1 H Plt Count 91 L Monocytes % 11.8 H BUN 21 H D Creatinine 3.2 H D TIBC 124 L AST 40 H D Alkaline Phosphatase 1080 H Total Protein 6.3 L Albumin 2.2 L Home Medication List Medication Instructions Recorded Confirmed Type Hydralazine HCl [Apresoline -] 50 mg PO BID 10/16/11 08/29/16 History Aspirin [Aspirin EC] 81 mg PO DAILY 12/25/14 08/29/16 History Levothyroxine [Synthroid -] 100 mcg PO DAILY 12/25/14 08/29/16 History Metoprolol Tartrate 50 mg PO BID 12/25/14 08/29/16 History Active Medications Generic Name Dose Route Start Last Admin Trade Name Freq PRN Reason Stop Dose Admin Acetaminophen 650 mg 08/29/16 05:27 Tylenol - PO Q6H PRN FEVER OR PAIN Aspirin 81 mg 08/29/16 10:00 08/31/16 09:44 Ecotrin - PO 81 mg DAILY [facility] Administration Azithromycin 500 mg 08/29/16 12:45 08/31/16 09:44 Zithromax 500mg Ivpb (Pre-Docked) IVPB 500 mg DAILY [facility] Administration Epoetin Bg 10,000 unit 09/01/16 14:03 Procrit - SQ 09/01/16 14:04 ONCE ONE Hydralazine HCl 50 mg 08/29/16 10:00 08/31/16 09:44 Apresoline - PO 50 mg BID [facility] Administration Ceftriaxone Sodium 100 mls @ 200 mls/hr 08/29/16 10:30 08/31/16 09:44 Rocephin 2gm Ivpb (Pre-Docked) IVPB 200 mls/hr DAILY [facility] Administration Levothyroxine Sodium 100 mcg 08/29/16 07:00 08/31/16 06:14 Synthroid - PO 100 mcg DAILY@0700 [facility] Administration Metoprolol Tartrate 50 mg 08/29/16 10:00 08/31/16 09:44 Lopressor - PO 50 mg BID [facility] Administration Sevelamer Carbonate 800 mg 08/29/16 08:00 08/31/16 17:10 Renvela - PO Not Given TIDCM [facility] A/P 51 year old s/p bone marrow transplant in 2007 and on June 28, 2016. Was on pomalidomide /?? carfilzomib/dexamethasone pre transplant PAtient reportedly had hard time tolerating it Had previously been on velcade/revlimid/auto SCT Patient presents with fever to 103 , cough and possible pulmonary infiltrate. ESRD on H.D. and s/p bioprosthetic aortic valve replacement in 2014. Improving on antibiotics Pancytopenia, mild, post transplant. stablei.
--- NOTE | 2016-08-31 17:49 | PN ---
Progress Note (short form) - Note Progress Note: feels better still some dry cough afebrile Vital Signs Period Temp Pulse Resp BP Sys/Nash Pulse Ox Last 24 Hr 98.3 F-99.5 F 74-85 16-18 108-133/59-73 97-97 cor-rrr lungs crackles left base abd soft,nt ext trace pedal edema CBC, BMP 08/31/16 05:35 08/31/16 05:35 Microbiology 08/30/16 06:00 Sputum - Expectorated Gram Stain - Final 08/30/16 06:00 Sputum - Expectorated Sputum Culture - Preliminary NORMAL RESPIRATORY NARCISO 08/28/16 20:18 Blood - Peripheral Venous Blood Culture - Preliminary NO GROWTH OBTAINED AFTER 48 HOURS, INCUBATION TO CONTINUE FOR 3 DAYS. 08/28/16 20:17 Blood - Peripheral Venous Blood Culture - Preliminary NO GROWTH OBTAINED AFTER 48 HOURS, INCUBATION TO CONTINUE FOR 3 DAYS. 08/29/16 13:30 Stool Clostridium difficile Antigen (KAVITA) - Final 08/29/16 13:30 Stool Clostridium difficile Toxin Assay - Final chest ct- LLL infiltrate a/p pneumonia s/p bmt for myeloma bioprosthetic avr clinically improved continue rocephin/zithromax
--- NOTE | 2016-08-31 20:42 | CON.GI ---
Consult Consult Specialty:: GI Referred by:: Dr Ho Reason for Consultation:: diarrhea and increased alk phos. - History of Present Illness Chief Complaint: Diarrhea History of Present Illness: 51 F with h/o MM, ESRD on HD, AVR 2014, anemia, HTN, HLD, BM transplant 2017 admitted with fever and couhgh and found to have PNA. Called to evaluate increased alk phos and diarrhea. Patient states she is having 4-5 formed BM daily. No loose or liquid stools and no bloody stools. She has no abdominal pain at this time and has no other complaints. - History Source History Provided By: Patient, Medical Record Limitations to Obtaining History: No Limitations - Past Medical History Cardio/Vascular: Yes: HTN, Murmur Pulmonary: Yes: Other (SOB) Renal/: Yes: Renal Failure, Hemodialysis ...: No Infectious Disease: Yes: C-Diff - Past Surgical History Past Surgical History: Yes: AV Fistula/Graft (s/p unsuccessful AVF thrombectomy and Permacath placement 2 weeks ago. S/p angioplasty 12/24/[address] Marshall), CABG (s/p AVR 11/19/14 at [facility]), - Alcohol/Substance Use Hx Alcohol Use: No History of Substance Use: reports: None - Smoking History Smoking history: Never smoked Have you smoked in the past 12 months: No Aproximately how many cigarettes per day: 0 - Social History ADL: Independent Occupation: disabled History of Recent Travel: No Home Medications - Allergies Allergies/Adverse Reactions: Allergies Allergy/AdvReac Type Severity Reaction Status Date / Time doxercalciferol Allergy Severe Low Blood Verified 08/28/16 18:48 [From Hectorol] Pressure - Home Medications Home Medications: Ambulatory Orders Hydralazine HCl [Apresoline -] 50 mg PO BID 10/16/11 Aspirin [Aspirin EC] 81 mg PO DAILY 12/25/14 Levothyroxine [Synthroid -] 100 mcg PO DAILY 12/25/14 Metoprolol Tartrate 50 mg PO BID 12/25/14 Family Disease History - Family Disease History Family Disease History: Other: Father ( of emphysema), Mother ( of dementia), Brother (healthy and living), Sister (healthy and living) Physical Exam-GI Vital Signs: Vital Signs Temperature 99.5 F 08/31/16 14:30 Pulse Rate 74 08/31/16 14:30 Respiratory Rate 16 08/31/16 14:30 Blood Pressure 108/59 08/31/16 14:30 O2 Sat by Pulse Oximetry (%) 97 08/31/16 09:00 Constitutional: Yes: Well Nourished, Thin Neck: Yes: Supple Cardiovascular: Yes: Regular Rate and Rhythm Respiratory: Yes: CTA Bilaterally Gastrointestinal Inspection: Yes: Distention ...Auscultate: Yes: Normoactive Bowel Sounds ...Palpate: Yes: Hepatomegaly ( liver 15 cm below costal margin.) ...Percussion: Yes: Dullness Labs: CBC, BMP 08/31/16 05:35 08/31/16 05:35 Hepatic Panel Total Bilirubin 0.6 mg/dL (0.2-1.0) D 08/31/16 05:35 AST 40 U/L (15-37) H D 08/31/16 05:35 ALT 17 U/L (12-78) D 08/31/16 05:35 Alkaline Phosphatase 1080 U/L (45-117) H 08/31/16 05:35 Albumin 2.2 g/dl (3.4-5.0) L 08/31/16 05:35 Imaging - Results Ultrasound: Report Reviewed (hepatomegaly) Assessment/Plan Frequent formed stools likely secondary to antibiotics Can give immodium x 1 to manage Increased alk phos likely due to bone involvement secondary to MM No management necessary
[2016-09-01] MEDS: LEVOTHYROXINE NA 100 MCG TABLET (FP) PO SCH (06:35)
[2016-09-01] MEDS: SEVELAMER CARBONATE 800 MG TAB (FP) PO SCH ×3 (08:10→16:37)
[2016-09-01 08:36] LABS: MCH 28.3 pg (25.7-33.7); MEAN CELL VOLUME 88.4 fl (80-96); MEAN PLT VOLUME 8.7 fl (7.5-11.1); PLATELET COUNT 80 K/MM3 (134-434); WHITE BLOOD COUNT 3.9 K/mm3 (4.0-10.0)
[2016-09-01] MEDS ORDERED: EPOETIN ALFA 10,000 UNIT/1 ML VIAL SQ ONE (09:30)
--- NOTE | 2016-09-01 09:41 | PN ---
Progress Note (short form) - Note Progress Note: Patient seen and examined in Dialysis Denies fever , rigors Somewhat constipated No chest pains, SOB or pleuritic pains Last Vital Signs Temp Pulse Resp BP Pulse Ox 98.5 F 82 20 145/78 96 09/01/16 05:51 09/01/16 05:51 09/01/16 05:51 09/01/16 05:51 08/31/16 21:00 HEENT: SORAIDA, EOM Intact Oropharynx: No thrush, No mucositis, coated tongue Cor: RSR, systolic murmur Lungs: rales left base Abd: Soft, Normal bowel sounds, liver 8 cm below xiphoid and RCM Ext:No significant edema Skin: No rashes, Integument intact CBC, BMP 09/01/16 08:00 08/31/16 05:35 Current Medications Generic Name Dose Route Start Last Admin Trade Name Freq PRN Reason Stop Dose Admin Acetaminophen 650 mg 08/29/16 05:27 Tylenol - PO Q6H PRN FEVER OR PAIN Aspirin 81 mg 08/29/16 10:00 08/31/16 09:44 Ecotrin - PO 81 mg DAILY [facility]ARE[facility] Administration Azithromycin 500 mg 08/29/16 12:45 08/31/16 09:44 Zithromax 500mg Ivpb (Pre-Docked) IVPB 500 mg DAILY [facility]ARE[facility] Administration Hydralazine HCl 50 mg 08/29/16 10:00 08/31/16 21:47 Apresoline - PO 50 mg BID FAREED Administration Ceftriaxone Sodium 100 mls @ 200 mls/hr 08/29/16 10:30 08/31/16 09:44 Rocephin 2gm Ivpb (Pre-Docked) IVPB 200 mls/hr DAILY [facility] Administration Levothyroxine Sodium 100 mcg 08/29/16 07:00 09/01/16 06:35 Synthroid - PO 100 mcg DAILY@0700 [facility] Administration Metoprolol Tartrate 50 mg 08/29/16 10:00 08/31/16 21:47 Lopressor - PO 50 mg BID [facility] Administration Sevelamer Carbonate 800 mg 08/29/16 08:00 09/01/16 08:10 Renvela - PO Not Given TIDCM [facility] Impression: Multiple myeloma -not in remission S/P transplatn in 2007 and June 2016 Pneumonia Bioprosthetic aortic valve -s/p replacement Elevated Alk Phos with increased GGTP Sono with hepatomegaly and minimal free fluid Pulmonary sub cm nodules and ? mediastinal lymphadenopathy sclerotic bones Pancytopenia - likely post transplant and secondary to pomalidomide Plan: Several interesting features Pulmonary nodules which are new from prior CT and ? mediastinal lymphadenopathy Abnormal liver - hepatomegaly and increased GGTP Sclerotic bone lesions - atypical for myeloma As patient has been followed at [facility] probably the above can be followed with pulmonary and hepatology consultation at that institution Continuing on antibiotics per I.D.
[2016-09-01] MEDS ORDERED: EPOETIN ALFA 20,000 UNIT/1 ML VIAL IVPUSH SCH (11:15)
--- NOTE | 2016-09-01 11:54 | PN ---
Progress Note, Physician History of Present Illness: Awake, alert Seated in bed No c/o chest pain/ dyspnea Occasional cough- whitish sputum No hemoptysis No fever/ chills BC (-) Sputum normal enrique - Current Medication List Current Medications: Active Medications Acetaminophen (Tylenol -) 650 mg PO Q6H PRN PRN Reason: FEVER OR PAIN Aspirin (Ecotrin -) 81 mg PO DAILY [facility] Last Admin: 08/31/16 09:44 Dose: 81 mg Azithromycin (Zithromax 500mg Ivpb (Pre-Docked)) 500 mg IVPB DAILY [facility] Last Admin: 08/31/16 09:44 Dose: 500 mg Epoetin Bg (Procrit -) 20,000 unit IVPUSH POSTDI [facility] Last Admin: 09/01/16 11:37 Dose: 20,000 unit Hydralazine HCl (Apresoline -) 50 mg PO BID [facility] Last Admin: 08/31/16 21:47 Dose: 50 mg Ceftriaxone Sodium (Rocephin 2gm Ivpb (Pre-Docked)) 100 mls @ 200 mls/hr IVPB DAILY [facility] Last Admin: 08/31/16 09:44 Dose: 200 mls/hr Levothyroxine Sodium (Synthroid -) 100 mcg PO DAILY@0700 [facility] Last Admin: 09/01/16 06:35 Dose: 100 mcg Metoprolol Tartrate (Lopressor -) 50 mg PO BID [facility] Last Admin: 08/31/16 21:47 Dose: 50 mg Sevelamer Carbonate (Renvela -) 800 mg PO TIDCM [facility] Last Admin: 09/01/16 08:10 Dose: Not Given - Objective Vital Signs: Vital Signs Temperature 98.6 F 09/01/16 07:45 Pulse Rate 82 09/01/16 11:30 Respiratory Rate 18 09/01/16 11:30 Blood Pressure 128/64 09/01/16 11:30 O2 Sat by Pulse Oximetry (%) 96 08/31/16 21:00 Constitutional: Yes: No Distress Eyes: Yes: Conjunctiva Clear Cardiovascular: Yes: Regular Rate and Rhythm, Murmur, S1, S2, Other (+ prosthetic valve murmur) Respiratory: Yes: CTA Bilaterally Gastrointestinal: Yes: Normal Bowel Sounds, Soft. No: Tenderness Edema: No Labs: CBC, BMP 09/01/16 08:00 08/31/16 05:35 Assessment/Plan LLL pneumonia Myeloma S/P aortic valve replacement Thrombocytopenia ESRD Clinically improved May substitute po levaquin 250mg q48h next 24h Complete additional 7d course
[2016-09-01] MEDS: ASPIRIN COATED 81 MG TABLET.EC PO SCH (12:13)
[2016-09-01] MEDS: METOPROLOL TARTRATE 50 MG TABLET (FP) PO SCH ×2 (12:13→21:01)
[2016-09-01] MEDS: hydrALAZINE HCL 50 MG TABLET (FP) PO SCH ×2 (12:13→21:01)
[2016-09-01] MEDS: AZITHROMYCIN IVPB 500 MG/250 ML D5W PRE-DOCKED IVPB SCH (12:14)
[2016-09-01] MEDS: CEFTRIAXONE 100 ML IVPB SCH (12:19)
--- NOTE | 2016-09-01 13:03 | PN ---
Progress Note, Physician Chief Complaint: The patient seen on dialysis. Tolerates well. Feeling better. Occasional cough still present. History of Present Illness: 51yo Female patient w/ significant PmHx: ESRD, Dialysis (M,W,F), Aortic Valve Replacement (2014), Anemia, HTN, Multiple Myeloma, Recent Bone Marrow Transplant (July 2016) - Current Medication List Current Medications: Active Medications Acetaminophen (Tylenol -) 650 mg PO Q6H PRN PRN Reason: FEVER OR PAIN Aspirin (Ecotrin -) 81 mg PO DAILY [facility] Last Admin: 09/01/16 12:13 Dose: 81 mg Azithromycin (Zithromax 500mg Ivpb (Pre-Docked)) 500 mg IVPB DAILY [facility] Last Admin: 09/01/16 12:14 Dose: 500 mg Epoetin Bg (Procrit -) 20,000 unit IVPUSH POSTDI [facility] Last Admin: 09/01/16 11:37 Dose: 20,000 unit Hydralazine HCl (Apresoline -) 50 mg PO BID [facility] Last Admin: 09/01/16 12:13 Dose: 50 mg Ceftriaxone Sodium (Rocephin 2gm Ivpb (Pre-Docked)) 100 mls @ 200 mls/hr IVPB DAILY [facility] Last Admin: 09/01/16 12:19 Dose: 200 mls/hr Levothyroxine Sodium (Synthroid -) 100 mcg PO DAILY@0700 [facility] Last Admin: 09/01/16 06:35 Dose: 100 mcg Metoprolol Tartrate (Lopressor -) 50 mg PO BID [facility] Last Admin: 09/01/16 12:13 Dose: 50 mg Sevelamer Carbonate (Renvela -) 800 mg PO TIDCM [facility] Last Admin: 09/01/16 12:13 Dose: Not Given - Objective Vital Signs: Vital Signs Temperature 98.6 F 09/01/16 07:45 Pulse Rate 82 09/01/16 11:30 Respiratory Rate 18 09/01/16 11:30 Blood Pressure 128/64 09/01/16 11:30 O2 Sat by Pulse Oximetry (%) 96 08/31/16 21:00 Constitutional: Yes: Anxious, Pallor Eyes: Yes: Conjunctiva Clear Neck: Yes: Trachea Midline Cardiovascular: Yes: S1, S2 Respiratory: Yes: Diminished, Rhonchi Gastrointestinal: Yes: Normal Bowel Sounds, Soft. No: Tenderness Genitourinary: No: Hematuria Musculoskeletal: Yes: Back Pain Labs: CBC, BMP 09/01/16 08:00 08/31/16 05:35 Problem List - Problems (1) Fever, unknown origin Code(s): R50.9 - FEVER, UNSPECIFIED (2) Leukocytosis Code(s): D72.829 - ELEVATED WHITE BLOOD CELL COUNT, UNSPECIFIED Qualifiers: Leukocytosis type: other Qualified Code(s): D72.828 - Other elevated white blood cell count (3) Anemia in ESRD (end-stage renal disease) Code(s): N18.6 - END STAGE RENAL DISEASE D63.1 - ANEMIA IN CHRONIC KIDNEY DISEASE (4) ESRD on hemodialysis Code(s): N18.6 - END STAGE RENAL DISEASE Z99.2 - DEPENDENCE ON RENAL DIALYSIS (5) Hypertension Code(s): I10 - ESSENTIAL (PRIMARY) HYPERTENSION (6) Multiple myeloma Code(s): C90.00 - MULTIPLE MYELOMA NOT HAVING ACHIEVED REMISSION Assessment/Plan 51 y/o female admitted with fever and cough, and possible Acute respiratory Infection. IV Abx well tolerated. Many unique features as per dr. Smith's note. Agree that her care will be at a better level if done at the Transplant center. Concur with the Abx course. Thank you. Preeti Cheema MD
--- NOTE | 2016-09-01 13:14 | PN ---
Progress Note (short form) - Note Progress Note: spoke to patient today about her abnormal liver function test she said she has appooitnment with senior contract specialist on jluy 6 at [facility] and will follow up with him Problem List - Problems (1) Alkaline phosphatase elevation Code(s): R74.8 - ABNORMAL LEVELS OF OTHER SERUM ENZYMES (2) Fever, unknown origin Code(s): R50.9 - FEVER, UNSPECIFIED (3) Leukocytosis Code(s): D72.829 - ELEVATED WHITE BLOOD CELL COUNT, UNSPECIFIED Qualifiers: Leukocytosis type: other Qualified Code(s): D72.828 - Other elevated white blood cell count (4) Anemia in ESRD (end-stage renal disease) Code(s): N18.6 - END STAGE RENAL DISEASE D63.1 - ANEMIA IN CHRONIC KIDNEY DISEASE (5) ESRD on hemodialysis Code(s): N18.6 - END STAGE RENAL DISEASE Z99.2 - DEPENDENCE ON RENAL DIALYSIS (6) Hypothyroidism Code(s): E03.9 - HYPOTHYROIDISM, UNSPECIFIED (7) Multiple myeloma Code(s): C90.00 - MULTIPLE MYELOMA NOT HAVING ACHIEVED REMISSION (8) S/P AVR (aortic valve replacement) Code(s): Z95.2 - PRESENCE OF PROSTHETIC HEART VALVE
--- NOTE | 2016-09-01 13:48 | PN ---
Progress Note, Physician Chief Complaint: The patient is sitting comfortably at the bedside. She offers no new complaints. No chest pains nor shortness of breath. 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 The patient denied chills and right wrist. Also denied shortness of breath, chest pains, palpitations. The patient is currently comfortable, sitting at the bedside. - Current Medication List Current Medications: Active Medications Acetaminophen (Tylenol -) 650 mg PO Q6H PRN PRN Reason: FEVER OR PAIN Aspirin (Ecotrin -) 81 mg PO DAILY [facility] Last Admin: 09/01/16 12:13 Dose: 81 mg Azithromycin (Zithromax 500mg Ivpb (Pre-Docked)) 500 mg IVPB DAILY [facility] Last Admin: 09/01/16 12:14 Dose: 500 mg Epoetin Bg (Procrit -) 20,000 unit IVPUSH POSTDI [facility] Last Admin: 09/01/16 11:37 Dose: 20,000 unit Hydralazine HCl (Apresoline -) 50 mg PO BID [facility] Last Admin: 09/01/16 12:13 Dose: 50 mg Ceftriaxone Sodium (Rocephin 2gm Ivpb (Pre-Docked)) 100 mls @ 200 mls/hr IVPB DAILY [facility] Last Admin: 09/01/16 12:19 Dose: 200 mls/hr Levothyroxine Sodium (Synthroid -) 100 mcg PO DAILY@0700 [facility] Last Admin: 09/01/16 06:35 Dose: 100 mcg Metoprolol Tartrate (Lopressor -) 50 mg PO BID [facility] Last Admin: 09/01/16 12:13 Dose: 50 mg Sevelamer Carbonate (Renvela -) 800 mg PO TIDCM [facility] Last Admin: 09/01/16 12:13 Dose: Not Given - Objective Vital Signs: Vital Signs Temperature 98.6 F 09/01/16 07:45 Pulse Rate 82 09/01/16 11:30 Respiratory Rate 20 09/01/16 12:56 Blood Pressure 128/64 09/01/16 11:30 O2 Sat by Pulse Oximetry (%) 96 09/01/16 12:56 Constitutional: Yes: No Distress, Calm Eyes: Yes: WNL HENT: Yes: WNL Neck: Yes: WNL Cardiovascular: Yes: WNL, Regular Rate and Rhythm, S1, S2 Respiratory: Yes: WNL Gastrointestinal: Yes: WNL ...Rectal Exam: Yes: Deferred Musculoskeletal: Yes: WNL Extremities: Yes: WNL Edema: No Peripheral Pulses WNL: Yes Integumentary: Yes: WNL Neurological: Yes: WNL ...Motor Strength: WNL Psychiatric: Yes: WNL Labs: CBC, BMP 09/01/16 08:00 08/31/16 05:35 Assessment/Plan The patient has been stable from the cardiac standpoint. No further fevers. No clinical evidence of active endocarditis. There is no need for further cardiac workup at this point. Please continue present care. Do not hesitate to call us PRN
--- NOTE | 2016-09-01 18:11 | PN ---
Progress Note, Physician Chief Complaint: fever History of Present Illness: seen in hemodialysis, comfortable, awake in bed. - Current Medication List Current Medications: Active Medications Acetaminophen (Tylenol -) 650 mg PO Q6H PRN PRN Reason: FEVER OR PAIN Aspirin (Ecotrin -) 81 mg PO DAILY [facility] Last Admin: 09/01/16 12:13 Dose: 81 mg Azithromycin (Zithromax 500mg Ivpb (Pre-Docked)) 500 mg IVPB DAILY [facility] Last Admin: 09/01/16 12:14 Dose: 500 mg Epoetin Bg (Procrit -) 20,000 unit IVPUSH POSTDI [facility] Last Admin: 09/01/16 11:37 Dose: 20,000 unit Hydralazine HCl (Apresoline -) 50 mg PO BID [facility] Last Admin: 09/01/16 12:13 Dose: 50 mg Ceftriaxone Sodium (Rocephin 2gm Ivpb (Pre-Docked)) 100 mls @ 200 mls/hr IVPB DAILY [facility] Last Admin: 09/01/16 12:19 Dose: 200 mls/hr Levothyroxine Sodium (Synthroid -) 100 mcg PO DAILY@0700 [facility] Last Admin: 09/01/16 06:35 Dose: 100 mcg Metoprolol Tartrate (Lopressor -) 50 mg PO BID [facility] Last Admin: 09/01/16 12:13 Dose: 50 mg Sevelamer Carbonate (Renvela -) 800 mg PO TIDCM [facility] Last Admin: 09/01/16 16:37 Dose: Not Given - Objective Vital Signs: Vital Signs Temperature 98.6 F 09/01/16 07:45 Pulse Rate 82 09/01/16 11:30 Respiratory Rate 20 09/01/16 12:56 Blood Pressure 128/64 09/01/16 11:30 O2 Sat by Pulse Oximetry (%) 96 09/01/16 12:56 Constitutional: Yes: Well Nourished, No Distress, Calm Cardiovascular: Yes: Regular Rate and Rhythm Respiratory: Yes: Regular Gastrointestinal: Yes: Normal Bowel Sounds ...Rectal Exam: Yes: Deferred Musculoskeletal: Yes: WNL Extremities: Yes: WNL Edema: No Peripheral Pulses WNL: Yes Integumentary: Yes: WNL Neurological: Yes: WNL ...Motor Strength: WNL Psychiatric: Yes: WNL Labs: CBC, BMP 09/01/16 08:00 08/31/16 05:35 Problem List - Problems (1) Pneumonia Assessment/Plan: -on iv abx -afebrile Code(s): J18.9 - PNEUMONIA, UNSPECIFIED ORGANISM (2) Anemia in ESRD (end-stage renal disease) Assessment/Plan: on procrit Code(s): N18.6 - END STAGE RENAL DISEASE D63.1 - ANEMIA IN CHRONIC KIDNEY DISEASE (3) Multiple myeloma Assessment/Plan: seen by oncology Code(s): C90.00 - MULTIPLE MYELOMA NOT HAVING ACHIEVED REMISSION (4) Pulmonary nodule seen on imaging study Assessment/Plan: Patient want to follow up as outpatient at [facility]. Spoke and discussed with Dr Smith. Code(s): R91.1 - SOLITARY PULMONARY NODULE (5) Alkaline phosphatase elevation Assessment/Plan: secondary to MM Code(s): R74.8 - ABNORMAL LEVELS OF OTHER SERUM ENZYMES Assessment/Plan -iv abx, treat acute problem and follow up as outpatient with [facility] -HD -Procrit -Physical Therapy ordered
[2016-09-02 00:07] LABS: HEP B SURFACE AB Reactive (.)
[2016-09-02] MEDS: LEVOTHYROXINE NA 100 MCG TABLET (FP) PO SCH (06:08)
[2016-09-02 07:46] LABS: BASOPHIL 1.1 % (0-2.0); EOSINOPHIL 3.9 % (0-4.5); MCH 28.2 pg (25.7-33.7); MCHC 31.9 g/dl (32.0-36.0); MEAN CELL VOLUME 88.6 fl (80-96); MEAN PLT VOLUME 8.4 fl (7.5-11.1); NEUTROPHILS 52.5 % (42.8-82.8); PLATELET COUNT 86 K/MM3 (134-434); RDW 18.8 % (11.6-15.6); WHITE BLOOD COUNT 4.4 K/mm3 (4.0-10.0)
[2016-09-02 07:54] LABS: ALBUMIN 2.5 g/dl (3.4-5.0); ANION GAP 9 (8-16); BILIRUBIN,TOTAL 0.5 mg/dL (0.2-1.0); CALCIUM 9.8 mg/dL (8.5-10.1); CO2 32 mmol/L (21-32); CREATININE 3.7 mg/dL (0.55-1.02); GLUCOSE,RANDOM 78 mg/dL (74-106); SGOT/AST 44 U/L (15-37); SGPT/ALT 21 U/L (12-78); TOT PROT 6.6 g/dl (6.4-8.2)
[2016-09-02 08:09] LABS: ALK PHOS 1175 U/L (45-117)
[2016-09-02 08:33] VITALS: BP 132/74; PULSE 87; TEMP 97.1
[2016-09-02] MEDS: SEVELAMER CARBONATE 800 MG TAB (FP) PO SCH (08:58)
[2016-09-02] MEDS: hydrALAZINE HCL 50 MG TABLET (FP) PO SCH (09:03)
[2016-09-02] MEDS: METOPROLOL TARTRATE 50 MG TABLET (FP) PO SCH (09:03)
[2016-09-02] MEDS: CEFTRIAXONE 100 ML IVPB SCH (09:03)
[2016-09-02] MEDS: ASPIRIN COATED 81 MG TABLET.EC PO SCH (09:04)
[2016-09-02] MEDS: AZITHROMYCIN IVPB 500 MG/250 ML D5W PRE-DOCKED IVPB SCH (09:42)
--- NOTE | 2016-09-02 10:13 | DS ---
Physical Examination Vital Signs: Vital Signs Temperature 97.1 F L 09/02/16 08:32 Pulse Rate 87 09/02/16 08:32 Respiratory Rate 18 09/02/16 08:32 Blood Pressure 132/74 09/02/16 08:32 O2 Sat by Pulse Oximetry (%) 95 09/01/16 20:02 Findings/Remarks: NO FEVER NO CP Cardiovascular: Yes: Regular Rate and Rhythm Respiratory: Yes: Regular, CTA Bilaterally Gastrointestinal: Yes: Normal Bowel Sounds, Soft Labs: CBC, BMP 09/02/16 06:00 09/02/16 06:00 Discharge Summary Reason For Visit: LEUKOCYTOSIS FEVER Current Active Problems Alkaline phosphatase elevation (Acute) Fever, unknown origin (Acute) Leukocytopenia (Acute) Leukocytosis (Acute) Pneumonia (Acute) Pulmonary nodule seen on imaging study (Acute) Hospital Course: - 51yo Female patient w/ significant PmHx: ESRD, Dialysis (M,W,F), Aortic Valve Replacement (2014), Anemia, HTN, Multiple Myeloma, Bone Marrow Transplant (2016 ) presents to ED c/o chronic cough, fever (103.0), weakness. Patient went to dialysis today and 1.7L of fluid removed. Patient denies any other complaints at this time. PCP- Dr. Munguia inER WBC 11.0 lactic 2.7, plt 108 fever 100.0 got vanco and cefepime History Source: Patient, Medical Record - Past Medical History Cardiovascular: Yes: HTN, Murmur Pulmonary: Yes: Other (SOB) Renal/: Yes: Renal Failure, Hemodialysis ...: No Heme/Onc: Yes: Anemia (due to chronic disease), Thrombocytopenia, Other ( multiple myelomaa s/p BMT 2007, s/p CTx ([facility])) Infectious Disease: Yes: C-Diff PATIENT ADMITTED FOR ANEMIA AND PNEUMONIA--S/P PRBC AND ANTIBIOTICS--FEELS BETTER--WILL FOLLOW UP OUTPATIENT Assessment/Plan -iv abx-TO PO -HD -Procrit - Problems (1) Anemia in ESRD (end-stage renal disease) Assessment/Plan: S/P PRBC MONITOR LABS Code(s): N18.6 - END STAGE RENAL DISEASE D63.1 - ANEMIA IN CHRONIC KIDNEY DISEASE (2) ESRD on hemodialysis Assessment/Plan: RENAL ON CASE DIALYSIS Code(s): N18.6 - END STAGE RENAL DISEASE Z99.2 - DEPENDENCE ON RENAL DIALYSIS (3) Multiple myeloma Assessment/Plan: PER ONCOLOGY treat acute problem and follow up as outpatient with [facility] Code(s): C90.00 - MULTIPLE MYELOMA NOT HAVING ACHIEVED REMISSION (4) S/P AVR (aortic valve replacement) Assessment/Plan: ECHO NOTED BC Code(s): Z95.2 - PRESENCE OF PROSTHETIC HEART VALVE (5) Pneumonia Assessment/Plan: IV ABX--TO PO ID ON CASE F/U IMAGING Code(s): J18.9 - PNEUMONIA, UNSPECIFIED ORGANISM (6) Alkaline phosphatase elevation Assessment/Plan: ONCOLOGY ON CASE treat acute problem and follow up as outpatient with [facility] Code(s): R74.8 - ABNORMAL LEVELS OF OTHER SERUM ENZYMES Condition: Improved - Instructions Diet, Activity, Other Instructions: follow up with renal and hematology labs in one week Referrals: Bea Munguia MD [Primary Care Provider] - 1 Week - Home Medications Comprehensive Discharge Medication List: Ambulatory Orders Hydralazine HCl [Apresoline -] 50 mg PO BID 10/16/11 Aspirin [Aspirin EC] 81 mg PO DAILY 12/25/14 Levothyroxine [Synthroid -] 100 mcg PO DAILY 12/25/14 Metoprolol Tartrate 50 mg PO BID 12/25/14 Acetaminophen [Tylenol .Regular Strength -] 650 mg PO Q6H PRN #0 tablet Levofloxacin [Levaquin -] 250 mg PO Q48H #5 tablet 09/02/16 Sevelamer Carbonate [Renvela -] 800 mg PO TIDCM #90 tab 09/02/16 Wheat Dextrin [Benefiber] 144 gm PO DAILY #1 bottle 09/02/16
== END 2016-09-02 12:05 | disposition home or self-care (01) | DRG 871 ==
LOC: JER 17:46 → JERBED 08-29 00:59 → J4S 08-29 03:34 → J7W 08-31 21:26
PROVIDERS: ADMIT Family Medicine; ATTEND Family Medicine
PROC: 30233N1 Transfusion of Nonautologous Red Blood Cells into Peripheral Vein, Percutaneous Approach (ICD-10-PCS; principal; 2016-08-29)
PROC: 5A1D60Z (ICD-10-PCS; 2016-08-30)
DX: A41.9 Sepsis, unspecified organism (principal); J18.9 Pneumonia, unspecified organism; N18.6 End stage renal disease; I12.0 Hypertensive chronic kidney disease with stage 5 chronic kidney disease or end stage renal disease; C90.00 Multiple myeloma not having achieved remission; E87.2 Acidosis; D61.818 Other pancytopenia; D84.9 Immunodeficiency, unspecified; I10 Essential (primary) hypertension; D64.9 Anemia, unspecified; E78.00 Pure hypercholesterolemia, unspecified; E03.9 Hypothyroidism, unspecified; D72.828 Other elevated white blood cell count; D69.6 Thrombocytopenia, unspecified; D63.8 Anemia in other chronic diseases classified elsewhere; R50.9 Fever, unspecified; R74.8 Abnormal levels of other serum enzymes; R91.1 Solitary pulmonary nodule; Z95.2 Presence of prosthetic heart valve; Z99.2 Dependence on renal dialysis
CPT/HCPCS: 36415; 36430; 71010-TC; 71250-TC; 76705-TC; 80053; 82550; 82728; 82977; 83540; 83550; 83605; 84443; 85025; 85027; 86704; 86706; 86708; 86803; 86850; 86900; 86901; 86922; 87040; 87070; 87205; 87324; 87340; 87449; 93005; 93010; 93306-TC; 99283-25; J0885; P9058

== ENCOUNTER 2016-12-31 15:20 | Inpatient (IN) | payer OTHER ==
[2016-12-31 19:27] LABS: BASOPHIL 0.8 % (0-2.0); EOSINOPHIL 0.5 % (0-4.5); MCH 30.5 pg (25.7-33.7); MCHC 31.4 g/dl (32.0-36.0); MEAN CELL VOLUME 97.1 fl (80-96); MEAN PLT VOLUME 9.7 fl (7.5-11.1); PLATELET COUNT 82 K/MM3 (134-434); RDW 18.9 % (11.6-15.6); WHITE BLOOD COUNT 9.4 K/mm3 (4.0-10.0)
--- NOTE | 2016-12-31 19:30 | PDOC ---
History of Present Illness - General History Source: Patient Exam Limitations: No Limitations - History of Present Illness Initial Comments: 12/31/16 20:29 The patient is a 51-year-old female with a significant past medical history of sarcoidosis, HTN, ESRD on dialysis, multiple myeloma, hypothyroidism, dyspnea, s /p autologous SCT (2016), s/p aortic valve replacement (2014), and presents to the emergency department complaining of black tarry stools and weakness for 5 days. Patient reports she had an upper endoscopy 6 days ago at [facility] with biopsies of the liver, esophagus, pancreas, and duodenum, and was told she is expected to have bleeding for 7 days. She states she went to the bathroom 3 times today with black stools and developed weakness today, prompting her to come to the ER. The patient denies chest pain, shortness of breath, headache and dizziness. The patient denies fever, chills, abdominal pain, hematochezia, nausea, vomit, diarrhea and constipation. Allergies: doxercalciferol Past Surgical History: s/p aortic valve replacement Social History: No toxic habits reported PCP: Dr. Munguia <Joelle Rodas - Last Filed: 12/31/16 20:29> <Gilma Fountain - Last Filed: 01/01/17 02:40> - General Chief Complaint: Weakness Stated Complaint: CHECK HEMOGLOBIN Time Seen by Provider: 12/31/16 19:15 Past History <Joelle Rodas - Last Filed: 12/31/16 20:29> - Past Medical History Anemia: Yes (anemia, thrombocytooenia) Asthma: Yes Cancer: Yes (multiple myeloma s/p chemo, bone marow transplant) Cardiac Disorders: Yes (aortic valve replacement) CVA: No COPD: No CHF: No Dementia: No Diabetes: No Dialysis: Yes (m/w/f) GI Disorders: Yes (diverticulosis, polyps, hiatal hernia, antral ulcers, internal hemrroids) Disorders: Yes (dyalisis sun-wed-sun) HTN: Yes Hypercholesterolemia: Yes Liver Disease: Yes (enlarged liver) Seizures: Yes (x1 2006) Thyroid Disease: Yes (hypothyroid) - Surgical History Cardiac Surgery: Yes (AVR (pig valve) 2014) - Immunization History Immunization Up to Date: Yes - Suicide/Smoking/Psychosocial Hx Smoking Status: No Smoking History: Never smoked Have you smoked in the past 12 months: No Number of Cigarettes Smoked Daily: 0 Information on smoking cessation initiated: No Hx Alcohol Use: No Drug/Substance Use Hx: No Substance Use Type: None Hx Substance Use Treatment: No <Gilma Fountain - Last Filed: 01/01/17 02:40> - Past Medical History Allergies/Adverse Reactions: Allergies Allergy/AdvReac Type Severity Reaction Status Date / Time doxercalciferol Allergy Severe Low Blood Verified 12/31/16 15:27 [From Hectorol] Pressure Home Medications: Ambulatory Orders Hydralazine HCl [Apresoline -] 50 mg PO BID 10/16/11 Levothyroxine [Synthroid -] 100 mcg PO DAILY 12/25/14 Metoprolol Tartrate 50 mg PO BID 12/25/14 Ipratropium/Albuterol Sulfate [Combivent Respimat Inhal [place]] 4 gm IH QID #1 aer.w.adap 09/02/16 Sevelamer Carbonate [Renvela -] 800 mg PO TIDCM #90 tab 09/02/16 Acyclovir [Zovirax -] 400 mg PO BID 12/31/16 Atorvastatin Ca [Lipitor] 10 mg PO DAILY 12/31/16 Budesonide/Formeterol Fumarate [SYMBICORT 160/4.5mcg -] 1 inh PO DAILY 12/31/16 Chlorpheniramine Maleate 4 mg PO HS 12/31/16 Cinacalcet HCl [Sensipar] 60 mg PO DAILY 12/31/16 Dexamethasone 20 mg PO WEEKLY 12/31/16 Fluticasone Prop 0.05% Nasal [Flonase -] 1 - 2 spray NS DAILY 12/31/16 Ixazomib Citrate [Ninlaro] 3 mg PO WEEKLY 12/31/16 Review of Systems - Review of Systems Able to Perform ROS?: Yes Comments:: 12/31/16 20:30 GENERAL/CONSTITUTIONAL: No fever or chills. (+) Weakness. HEAD, EYES, EARS, NOSE AND THROAT: No change in vision. No ear pain or discharge. No sore throat. CARDIOVASCULAR: No chest pain or shortness of breath. RESPIRATORY: No cough, wheezing, or hemoptysis. GASTROINTESTINAL: No nausea, vomiting, diarrhea or constipation. (+) Melena GENITOURINARY: No dysuria, frequency, or change in urination. MUSCULOSKELETAL: No joint or muscle swelling or pain. No neck or back pain. SKIN: No rash NEUROLOGIC: No headache, vertigo, loss of consciousness, or change in strength/ sensation. ENDOCRINE: No increased thirst. No abnormal weight change. HEMATOLOGIC/LYMPHATIC: No anemia, easy bleeding, or history of blood clots. ALLERGIC/IMMUNOLOGIC: No hives or skin allergy. <Joelle Rodas - Last Filed: 12/31/16 20:29> *Physical Exam - Vital Signs Last Vital Signs Temp Pulse Resp BP Pulse Ox 98.4 F 86 16 106/52 100 12/31/16 15:27 12/31/16 15:27 12/31/16 15:27 12/31/16 15:27 12/31/16 15:27 - Physical Exam Comments: 12/31/16 20:30 GENERAL: Awake, alert, and fully oriented, in no acute distress. Afebrile. (+) Thin. HEAD: No signs of trauma EYES: PERRLA, EOMI, sclera anicteric, conjunctiva clear ENT: Auricles normal inspection, hearing grossly normal, nares patent, oropharynx clear without exudates. Moist mucosa NECK: Normal ROM, supple, no lymphadenopathy, JVD, or masses LUNGS: Breath sounds equal, clear to auscultation bilaterally. No wheezes, and no crackles HEART: Regular rate. (+) Hard mechanical click, S2 valve, S1 murmur. No rubs or gallops ABDOMEN: Soft, nontender, (+) increased bowel sounds. No guarding, no rebound. (+) Ventral hernia. EXTREMITIES: Normal range of motion, no edema. No clubbing or cyanosis. No cords, erythema, or tenderness. (+) AV shunt on left upper arm. NEUROLOGICAL: Cranial nerves II through XII grossly intact. Normal speech SKIN: Warm, Dry, normal turgor, no rashes or lesions noted. <Joelle Rodas - Last Filed: 12/31/16 20:29> - Vital Signs Last Vital Signs Temp Pulse Resp BP Pulse Ox 98.4 F 86 16 106/52 100 12/31/16 15:27 12/31/16 15:27 12/31/16 15:27 12/31/16 15:27 12/31/16 15:27 <Gilma Fountain - Last Filed: 01/01/17 02:40> ED Treatment Course - LABORATORY CBC & Chemistry Diagram: 12/31/16 19:20 12/31/16 19:20 - ADDITIONAL ORDERS Additional order review: Laboratory Results 12/31/16 19:20 PT with INR 16.50 H INR 1.46 H 12/31/16 19:20 RBC 1.79 L D MCV 97.1 H MCHC 31.4 L RDW 18.9 H MPV 9.7 D Neutrophils % 61.0 Lymphocytes % 22.0 D Monocytes % 15.7 H Eosinophils % 0.5 D Basophils % 0.8 <Joelle Rodas - Last Filed: 12/31/16 20:29> - LABORATORY CBC & Chemistry Diagram: 12/31/16 19:20 12/31/16 19:20 <Gilma Fountain - Last Filed: 01/01/17 02:40> Medical Decision Making - Medical Decision Making 12/31/16 19:30 Pt comes with multiple complaints. She has multiple myeloma, sarcoidosis, hypothyroidism, HTN, ESRD, jaundice secoondary to liver disease and cardiac valve replacement 2 years ago. Pt comes because 5 days ago she had Upper endocsopy with biopsies of the esophagus, stomach and duodenum. SHe was told that she should expect bleeding x 7 days. She has had black stools. She has weakness today and as a result she came to the ER to make sure her Hemoglobin is not falling too low. 01/01/17 02:39 Pt's Hb dropped 3 points. I ordered transfusion and let her PMD know. She will be admitted to Dr. Caruso's service. <Gilma Fountain - Last Filed: 01/01/17 02:40> *DC/Admit/Observation/Transfer - Attestations Scribe Attestion: 12/31/16 20:30 Documentation prepared by Joelle Rodas, acting as biomedical repair technician for Gilma Fountain MD. <Joelle Rodas - Last Filed: 12/31/16 20:29> - Discharge Dispostion Admit: Yes <Gilma Fountain - Last Filed: 01/01/17 02:40> Diagnosis at time of Disposition: Anemia, ESRD on hemodialysis, History of biopsy, Abnormal endoscopy of upper gastrointestinal tract - Referrals
[2016-12-31 19:41] LABS: INR 1.46 (0.82-1.09); PROTHROMBIN TIME (PATIENT) 16.5 SEC (9.98-11.88)
[2016-12-31 20:17] LABS: ALBUMIN 3.1 g/dl (3.4-5.0); ANION GAP 21 (8-16); CALCIUM 9.9 mg/dL (8.5-10.1); CO2 20 mmol/L (21-32); CREATININE 6.4 mg/dL (0.55-1.02); GLUCOSE,RANDOM 76 mg/dL (74-106); SGOT/AST 94 U/L (15-37); SGPT/ALT 51 U/L (12-78); TOT PROT 6.2 g/dl (6.4-8.2)
[2016-12-31 20:25] LABS: PLATELET COMMENT2 NO CLOTTING DETECTED; PLATELET ESTIMATE SLT DECREASED (NORMAL)
[2016-12-31] MEDS ORDERED: ONDANSETRON 4 MG/2 ML VIAL IVPB PRN (20:42)
[2016-12-31] MEDS ORDERED: ACETAMINOPHEN 1000 MG/100 ML VIAL (NON FORMULARY) IVPB PRN (20:42)
[2016-12-31 20:47] LABS: CPK 54 IU/L (26-192); TROPONIN I 0.19 ng/ml (0.00-0.05)
[2016-12-31] MEDS ORDERED: SODIUM POLYSTYRENE SULFONATE 15 GM/60 ML BOTTLE PO ONE (20:47)
[2016-12-31] MEDS ORDERED: SODIUM POLYSTYRENE SULFONATE 15 GM/60 ML BOTTLE ONE (20:50)
[2016-12-31 21:11] LABS: ALK PHOS 1485 U/L (45-117)
[2017-01-01] MEDS: PANTOPRAZOLE SODIUM 40 MG VIAL IVPUSH SCH ×3 (01:46→21:14)
[2017-01-01 08:05] LABS: MCHC 33.1 g/dl (32.0-36.0); MEAN CELL VOLUME 93.8 fl (80-96); MEAN PLT VOLUME 10.4 fl (7.5-11.1); PLATELET COUNT 76 K/MM3 (134-434); RDW 16.3 % (11.6-15.6); WHITE BLOOD COUNT 10.3 K/mm3 (4.0-10.0)
[2017-01-01 08:28] LABS: ALBUMIN 3.1 g/dl (3.4-5.0); ANION GAP 20 (8-16); CALCIUM 9.7 mg/dL (8.5-10.1); CO2 21 mmol/L (21-32); CREATININE 7.1 mg/dL (0.55-1.02); GLUCOSE,RANDOM 87 mg/dL (74-106); PHOSPHOROUS 5.9 mg/dL (2.5-4.9); SGOT/AST 159 U/L (15-37); SGPT/ALT 84 U/L (12-78)
[2017-01-01 08:44] LABS: BILIRUBIN,TOTAL 2.3 mg/dL (0.2-1.0); TOT PROT 5.7 g/dl (6.4-8.2)
[2017-01-01 08:48] LABS: ALK PHOS 1339 U/L (45-117)
--- NOTE | 2017-01-01 10:21 | HP ---
Admitting History and Physical - Primary Care Physician PCP: Bea Munguia I - Admission Chief Complaint: weakness and melena History of Present Illness: The patient is a 51-year-old female with a significant past medical history of sarcoidosis, HTN, ESRD on dialysis, multiple myeloma, hypothyroidism, dyspnea, s /p autologous SCT (2016), s/p aortic valve replacement (2014), and presents to the emergency department complaining of black tarry stools and weakness for 5 days. Patient reports she had an upper endoscopy 6 days ago at [facility] with biopsies of the liver, esophagus, pancreas, and duodenum, and was told she is expected to have bleeding for 7 days. She states she went to the bathroom 3 times today with black stools and developed weakness today, prompting her to come to the ER. IN ER found to have h/h 5.4/17.3 got 2 units prbc History Source: Patient, Medical Record - Past Medical History Cardiovascular: Yes: HTN, Murmur Pulmonary: Yes: Other (SOB) Renal/: Yes: Renal Failure, Hemodialysis ...LMP: 01/01/08 ...: No Heme/Onc: Yes: Anemia, Myeloproliferative Synd Infectious Disease: Yes: C-Diff - Past Surgical History Past Surgical History: Yes: AV Fistula/Graft (s/p unsuccessful AVF thrombectomy and Permacath placement 2 weeks ago. S/p angioplasty 12/24/[address] Marshall), CABG (s/p AVR 11/19/14 at [place]), - Smoking History Smoking history: Never smoked Have you smoked in the past 12 months: No Aproximately how many cigarettes per day: 0 - Alcohol/Substance Use Hx Alcohol Use: No History of Substance Use: reports: None - Social History ADL: Independent Occupation: disabled History of Recent Travel: No Home Medications - Allergies Allergies/Adverse Reactions: Allergies Allergy/AdvReac Type Severity Reaction Status Date / Time doxercalciferol Allergy Severe Low Blood Verified 12/31/16 15:27 [From Hectorol] Pressure - Home Medications Home Medications: Ambulatory Orders Hydralazine HCl [Apresoline -] 50 mg PO BID 10/16/11 Levothyroxine [Synthroid -] 100 mcg PO DAILY 12/25/14 Metoprolol Tartrate 50 mg PO BID 12/25/14 Ipratropium/Albuterol Sulfate [Combivent Respimat Inhal [place]] 4 gm IH QID #1 aer.w.adap 09/02/16 Sevelamer Carbonate [Renvela -] 800 mg PO TIDCM #90 tab 09/02/16 Acyclovir [Zovirax -] 400 mg PO BID 12/31/16 Atorvastatin Ca [Lipitor] 10 mg PO DAILY 12/31/16 Budesonide/Formeterol Fumarate [SYMBICORT 160/4.5mcg -] 1 inh PO DAILY 12/31/16 Chlorpheniramine Maleate 4 mg PO HS 12/31/16 Cinacalcet HCl [Sensipar] 60 mg PO DAILY 12/31/16 Dexamethasone 20 mg PO WEEKLY 12/31/16 Fluticasone Prop 0.05% Nasal [Flonase -] 1 - 2 spray NS DAILY 12/31/16 Ixazomib Citrate [Ninlaro] 3 mg PO WEEKLY 12/31/16 Family Disease History - Family Disease History Family Disease History: Other: Father ( of emphysema), Mother ( of dementia), Brother (healthy and living), Sister (healthy and living) Review of Systems - Review of Systems Constitutional: reports: Weakness Physical Examination Vital Signs: Vital Signs Temperature 98.8 F 12/31/16 22:41 Pulse Rate 80 12/31/16 22:41 Respiratory Rate 20 12/31/16 22:41 Blood Pressure 112/63 12/31/16 22:41 O2 Sat by Pulse Oximetry (%) 97 12/31/16 22:41 Constitutional: Yes: Calm Eyes: Yes: Sclera Icterus Cardiovascular: Yes: Regular Rate and Rhythm, Murmur, S1, S2 Respiratory: Yes: CTA Bilaterally Gastrointestinal: Yes: Distention, Hepatomegaly Edema: No Labs: CBC, BMP 01/01/17 07:40 01/01/17 07:40 Problem List - Problems (1) Anemia Assessment/Plan: h/o of ESRD and MM PPI npo 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 Code(s): D64.9 - ANEMIA, UNSPECIFIED (2) ESRD on hemodialysis Assessment/Plan: renal eval for HD got kayxelate in ER Code(s): N18.6 - END STAGE RENAL DISEASE Z99.2 - DEPENDENCE ON RENAL DIALYSIS (3) Bleeding Assessment/Plan: coffee ground emesis earlier today NPO for now GI eval PPI bid zofran prn Code(s): R58 - HEMORRHAGE, NOT ELSEWHERE CLASSIFIED (4) Hypothyroidism Assessment/Plan: synthroid 50mcg IM daily till cleared to take oral check tsh Code(s): E03.9 - HYPOTHYROIDISM, UNSPECIFIED (5) Abnormal endoscopy of upper gastrointestinal tract Assessment/Plan: EGD was done at [facility] patient has report with her alan get our GI team to see her Code(s): [id number] -
--- NOTE | 2017-01-01 11:30 | CON.NEP ---
Consult Consult Specialty:: Nephrology Referred by:: Dr. Caruso Reason for Consultation:: ESRD on HD - History of Present Illness Chief Complaint: Melena - Past Medical History Cardio/Vascular: Yes: HTN, Murmur Pulmonary: Yes: Other (SOB) Renal/: Yes: Renal Failure, Hemodialysis ...LMP: 01/01/08 ...: No Infectious Disease: Yes: C-Diff - Past Surgical History Past Surgical History: Yes: AV Fistula/Graft (s/p unsuccessful AVF thrombectomy and Permacath placement 2 weeks ago. S/p angioplasty 12/24/[address] Marshall), CABG (s/p AVR 11/19/14 at [place]), - Alcohol/Substance Use Hx Alcohol Use: No History of Substance Use: reports: None - Smoking History Smoking history: Never smoked Have you smoked in the past 12 months: No Aproximately how many cigarettes per day: 0 - Social History ADL: Independent Occupation: disabled History of Recent Travel: No Home Medications - Allergies Allergies/Adverse Reactions: Allergies Allergy/AdvReac Type Severity Reaction Status Date / Time doxercalciferol Allergy Severe Low Blood Verified 12/31/16 15:27 [From Hectorol] Pressure - Home Medications Home Medications: Ambulatory Orders Hydralazine HCl [Apresoline -] 50 mg PO BID 10/16/11 Levothyroxine [Synthroid -] 100 mcg PO DAILY 12/25/14 Metoprolol Tartrate 50 mg PO BID 12/25/14 Ipratropium/Albuterol Sulfate [Combivent Respimat Inhal [place]] 4 gm IH QID #1 aer.w.adap 09/02/16 Sevelamer Carbonate [Renvela -] 800 mg PO TIDCM #90 tab 09/02/16 Acyclovir [Zovirax -] 400 mg PO BID 12/31/16 Atorvastatin Ca [Lipitor] 10 mg PO DAILY 12/31/16 Budesonide/Formeterol Fumarate [SYMBICORT 160/4.5mcg -] 1 inh PO DAILY 12/31/16 Chlorpheniramine Maleate 4 mg PO HS 12/31/16 Cinacalcet HCl [Sensipar] 60 mg PO DAILY 12/31/16 Dexamethasone 20 mg PO WEEKLY 12/31/16 Fluticasone Prop 0.05% Nasal [Flonase -] 1 - 2 spray NS DAILY 12/31/16 Ixazomib Citrate [Ninlaro] 3 mg PO WEEKLY 12/31/16 Family Disease History - Family Disease History Family Disease History: Other: Father ( of emphysema), Mother ( of dementia), Brother (healthy and living), Sister (healthy and living) Nephrology Consult - Height Height: 4 ft 11 in - Weight Weight: 98 lb 8 oz - BMI Body Mass Index (BMI): 19.8 - Lab Results CBC,BMP: CBC, BMP 01/01/17 07:40 01/01/17 07:40 Anion Gap: Anion Gap Anion Gap 20 (8-16) H 01/01/17 07:40 - Physical Examination Vital Signs: Vital Signs Temperature 98.8 F 12/31/16 22:41 Pulse Rate 80 12/31/16 22:41 Respiratory Rate 20 12/31/16 22:41 Blood Pressure 112/63 12/31/16 22:41 O2 Sat by Pulse Oximetry (%) 97 12/31/16 22:41 Assessment/Plan 51 year old woman with PMhx of ERSD on HD (x 10 years) sarcoidosis, HTN,, multiple myeloma, hypothyroidism, dyspnea, s/p autologous SCT (2016), s/p aortic valve replacement (2014) presented with melena and loose stools. #ESRD on HD with hyperkalemia and very high BUN/Cr Both hyperkalemia and high BUN due to reabsorbtion of blood from the GI tract for HD today with 2k bath pt is currently NPO but should start renal diet when ok to #Anemia/GI Bleed pt responded well to prbc transfusion will give additional 1 unit of blood with HD today GI follow up Full consult to follow
[2017-01-01 11:31] VITALS: BMI 19.8
[2017-01-01] MEDS: LEVOTHYROXINE SODIUM 100 MCG VIAL IVPUSH SCH (12:56)
--- NOTE | 2017-01-01 14:45 | EKG ---
Test Reason : Blood Pressure : / mmHG Vent. Rate : 080 BPM Atrial Rate : 080 BPM P-R Int : 188 ms QRS Dur : 086 ms QT Int : 438 ms P-R-T Axes : 068 013 028 degrees QTc Int : 505 ms NORMAL SINUS RHYTHM WITH SINUS ARRHYTHMIA NONSPECIFIC T WAVE ABNORMALITY PROLONGED QT ABNORMAL ECG WHEN COMPARED WITH ECG OF 28-AUG-2016 18:22, T WAVE VARIATION Confirmed by EWA FULLER MD ([id number]) on 01/01/2017 2:45:04 PM Referred By: Confirmed By:EWA FULLER MD
--- NOTE | 2017-01-01 18:42 | CON.GI ---
Consult Consult Specialty:: GI Referred by:: Zuly Reason for Consultation:: GI bleed - History of Present Illness Chief Complaint: Fatigue with anemia History of Present Illness: 51 F with h/o sarcoid, HTN, ESRD on dialysis, multiple myeloma on chemo, hypothyroidism, dyspnea, s/p autologous Stem Cell Transplant (2017), s/p aortic valve replacement (2014), Recently diagnosed with pancreas divisum, CABG, seen last week at [facility] where she had EGD/EUS. Several biopsies were taken from the GE-jxn, stomach and duodenum. EUS revealed a worrisome cyst in the head of the pancreas communicating with the PD. She apparently had a liver biopsy as well during that admission, likely to evaluate for cirrhosis. She has ascites, thrombocytopenia and an INR of 1.5. She comes to [facility] with "fatigue" and a Hgb of 5.4. She describes 3 episodes of melena prior to admission but no bleeding since. She appears comfortable at this time and denies CP. She denies knowing about ESLD. She is a patient of Dr Munguia. He states she comes to the office infrequently. - History Source History Provided By: Patient Limitations to Obtaining History: No Limitations - Past Medical History Cardio/Vascular: Yes: HTN, Murmur Pulmonary: Yes: Other (SOB likely related to profound anemia) Renal/: Yes: Renal Failure, Hemodialysis ...LMP: 01/01/08 ...: No Infectious Disease: Yes: C-Diff - Past Surgical History Past Surgical History: Yes: AV Fistula/Graft (s/p unsuccessful AVF thrombectomy and Permacath placement 2 weeks ago. S/p angioplasty 12/24/[address] Marshall), CABG (s/p AVR 11/19/14 at [place]), - Alcohol/Substance Use Hx Alcohol Use: No History of Substance Use: reports: None - Smoking History Smoking history: Never smoked Have you smoked in the past 12 months: No Aproximately how many cigarettes per day: 0 - Social History ADL: Independent Occupation: disabled History of Recent Travel: No Home Medications - Allergies Allergies/Adverse Reactions: Allergies Allergy/AdvReac Type Severity Reaction Status Date / Time doxercalciferol Allergy Severe Low Blood Verified 12/31/16 15:27 [From Hectorol] Pressure - Home Medications Home Medications: Ambulatory Orders Hydralazine HCl [Apresoline -] 50 mg PO BID 10/16/11 Levothyroxine [Synthroid -] 100 mcg PO DAILY 12/25/14 Metoprolol Tartrate 50 mg PO BID 12/25/14 Ipratropium/Albuterol Sulfate [Combivent Respimat Inhal [place]] 4 gm IH QID #1 aer.w.adap 09/02/16 Sevelamer Carbonate [Renvela -] 800 mg PO TIDCM #90 tab 09/02/16 Acyclovir [Zovirax -] 400 mg PO BID 12/31/16 Atorvastatin Ca [Lipitor] 10 mg PO DAILY 12/31/16 Budesonide/Formeterol Fumarate [SYMBICORT 160/4.5mcg -] 1 inh PO DAILY 12/31/16 Chlorpheniramine Maleate 4 mg PO HS 12/31/16 Cinacalcet HCl [Sensipar] 60 mg PO DAILY 12/31/16 Dexamethasone 20 mg PO WEEKLY 12/31/16 Fluticasone Prop 0.05% Nasal [Flonase -] 1 - 2 spray NS DAILY 12/31/16 Ixazomib Citrate [Ninlaro] 3 mg PO WEEKLY 12/31/16 Family Disease History - Family Disease History Family Disease History: Other: Father ( of emphysema), Mother ( of dementia), Brother (healthy and living), Sister (healthy and living) Physical Exam-GI Vital Signs: Vital Signs Temperature 98.1 F 01/01/17 13:10 Pulse Rate 87 01/01/17 14:50 Respiratory Rate 18 01/01/17 14:50 Blood Pressure 120/68 01/01/17 14:50 O2 Sat by Pulse Oximetry (%) 97 01/01/17 09:00 Constitutional: Yes: Well Nourished HENT: Yes: Normocephalic Cardiovascular: Yes: Regular Rate and Rhythm Respiratory: Yes: CTA Bilaterally Gastrointestinal Inspection: Yes: Ascites ...Auscultate: Yes: Normoactive Bowel Sounds ...Palpate: Yes: Soft, Tenderness Psychiatric: Yes: Alert, Oriented Labs: CBC, BMP 01/01/17 07:40 01/01/17 07:40 INR, PTT INR 1.46 (0.82-1.09) H 12/31/16 19:20 Hepatic Panel Total Bilirubin 2.3 mg/dL (0.2-1.0) H D 01/01/17 07:40 AST 159 U/L (15-37) H D 01/01/17 07:40 ALT 84 U/L (12-78) H D 01/01/17 07:40 Alkaline Phosphatase 1339 U/L (45-117) H 01/01/17 07:40 Albumin 3.1 g/dl (3.4-5.0) L 01/01/17 07:40 Assessment/Plan 51 F with complicated PMH admitted with GI bleed. No bleeding at this time. She has received 2 units of FFP and 3 units PRBC No active bleed at this time Rec: Patient has ESLD with ascites, plt of 76 and INR of 1.5 Patient also has ESRD on dialysis. She is s/p large UGIB likely related to procedures she underwent at [facility]. No CT done-will order stat U/S to r/o tom-hepatic bleed or other intra- abdominal bleeding along with obvious GI bleed She may have had a variceal bleed but no bleed at this time. Rec: Transfer to [facility] for appropriate follow-up and management of her bleeding issue Stat U/S to evaluate liver for post-procedure bleed rd
--- NOTE | 2017-01-01 22:58 | CONSULT ---
Consult - text type - Consultation Consultation Note: 51 F with h/o sarcoid, HTN, ESRD on dialysis, multiple myeloma on chemo, hypothyroidism, s/p autologous Stem Cell Transplant (2017), s/p aortic valve replacement (2014), Recently diagnosed with pancreas divisum, seen last week at [facility] where she had EGD/EUS. Several biopsies were taken from the GE-[id number], stomach and duodenum. EUS revealed a worrisome cyst in the head of the pancreas communicating with the PD. She apparently had a liver biopsy as well during that admission, likely to evaluate for cirrhosis. She has ascites, thrombocytopenia and an INR of 1.5. She comes to [facility] with "fatigue" and a Hgb of 5.4. She describes 3 episodes of melena prior to admission but no bleeding since. She appears comfortable at this time and denies CP. - History Source History Provided By: Patient Limitations to Obtaining History: No Limitations - Past Medical History Cardio/Vascular: Yes: HTN, Murmur Pulmonary: Yes: Other (SOB likely related to profound anemia) Renal/: Yes: Renal Failure, Hemodialysis ...LMP: 01/01/08 Infectious Disease: Yes: C-Diff - Past Surgical History Past Surgical History: Yes: AV Fistula/Graft (s/p unsuccessful AVF thrombectomy and Permacath placement 2 weeks ago. S/p angioplasty 12/24/[address] Marshall), CABG (s/p AVR 11/19/14 at [place]), - Alcohol/Substance Use Hx Alcohol Use: No - Smoking History Smoking history: Never smoked - Social History ADL: Independent Occupation: disabled Home Medications - Allergies Allergies/Adverse Reactions: Allergies Allergy/AdvReac Type Severity Reaction Status Date / Time doxercalciferol Allergy Severe Low Blood Verified 12/31/16 15:27 [From Hectorol] Pressure - Home Medications Home Medications: Ambulatory Orders Hydralazine HCl [Apresoline -] 50 mg PO BID 10/16/11 Levothyroxine [Synthroid -] 100 mcg PO DAILY 12/25/14 Metoprolol Tartrate 50 mg PO BID 12/25/14 Ipratropium/Albuterol Sulfate [Combivent Respimat Inhal [place]] 4 gm IH QID #1 aer.w.adap 09/02/16 Sevelamer Carbonate [Renvela -] 800 mg PO TIDCM #90 tab 09/02/16 Acyclovir [Zovirax -] 400 mg PO BID 12/31/16 Atorvastatin Ca [Lipitor] 10 mg PO DAILY 12/31/16 Budesonide/Formeterol Fumarate [SYMBICORT 160/4.5mcg -] 1 inh PO DAILY 12/31/16 Chlorpheniramine Maleate 4 mg PO HS 12/31/16 Cinacalcet HCl [Sensipar] 60 mg PO DAILY 12/31/16 Dexamethasone 20 mg PO WEEKLY 12/31/16 Fluticasone Prop 0.05% Nasal [Flonase -] 1 - 2 spray NS DAILY 12/31/16 Ixazomib Citrate [Ninlaro] 3 mg PO WEEKLY 12/31/16 Family Disease History - Family Disease History Family Disease History: Other: Father ( of emphysema), Mother ( of dementia), Brother (healthy and living), Sister (healthy and living) Physical Exam-GI Vital Signs: Vital Signs Temperature 98.1 F 01/01/17 13:10 Pulse Rate 87 01/01/17 14:50 Respiratory Rate 18 01/01/17 14:50 Blood Pressure 120/68 01/01/17 14:50 O2 Sat by Pulse Oximetry (%) 97 01/01/17 09:00 Constitutional: Yes: Well Nourished HENT: Yes: Normocephalic Cardiovascular: Yes: Regular Rate and Rhythm Respiratory: Yes: CTA Bilaterally Gastrointestinal Inspection: Yes: Ascites ...Palpate: Yes: Soft, Tenderness Psychiatric: Yes: Alert, Oriented Labs: CBC, BMP 01/01/17 07:40 01/01/17 07:40 INR, PTT INR 1.46 (0.82-1.09) H 12/31/16 19:20 Hepatic Panel Total Bilirubin 2.3 mg/dL (0.2-1.0) H D 01/01/17 07:40 AST 159 U/L (15-37) H D 01/01/17 07:40 ALT 84 U/L (12-78) H D 01/01/17 07:40 Alkaline Phosphatase 1339 U/L (45-117) H 01/01/17 07:40 Albumin 3.1 g/dl (3.4-5.0) L 01/01/17 07:40 Assessment/Plan 51 year old s/p bone marrow transplant in 2007 and on June 28, 2016. sp bioAVR 2014. ESRD on HD Was on pomalidomide /?? carfilzomib/dexamethasone pre transplant PAtient reportedly had hard time tolerating it Had previously been on velcade/revlimid/auto SCT Patient presents with severe anemia/melena HAs ESLD aswell on exam/coagulopathy/thrombocytopenia Recent EGD /EUS at [facility] s/p PRBCs/FFP For possible transfer to [facility]
[2017-01-02 08:49] LABS: BASOPHIL 0.8 % (0-2.0); EOSINOPHIL 1.1 % (0-4.5); MCH 30.4 pg (25.7-33.7); MCHC 33.8 g/dl (32.0-36.0); NEUTROPHILS 76.3 % (42.8-82.8); PLATELET COUNT 63 K/MM3 (134-434); RDW 19.6 % (11.6-15.6); WHITE BLOOD COUNT 7.9 K/mm3 (4.0-10.0)
[2017-01-02 09:13] LABS: INR 1.34 (0.82-1.09); PROTHROMBIN TIME (PATIENT) 15.1 SEC (9.98-11.88)
[2017-01-02 09:17] LABS: ACTIVATED PTT 32.5 SECONDS (26.9-34.4)
[2017-01-02 09:22] LABS: ALBUMIN 2.8 g/dl (3.4-5.0); ANION GAP 13 (8-16); BILIRUBIN,TOTAL 1.7 mg/dL (0.2-1.0); CALCIUM 9.7 mg/dL (8.5-10.1); CO2 29 mmol/L (21-32); CREATININE 4.1 mg/dL (0.55-1.02); GLUCOSE,RANDOM 80 mg/dL (74-106); SGPT/ALT 287 U/L (12-78); TOT PROT 5.7 g/dl (6.4-8.2)
[2017-01-02 09:31] LABS: SGOT/AST 553 U/L (15-37)
[2017-01-02 09:34] LABS: THYROID STIMULATING HORMONE 2.76 uIU/ml (0.358-3.74)
[2017-01-02 09:38] LABS: ALK PHOS 1182 U/L (45-117)
[2017-01-02 09:40] LABS: FERRITIN 6668.017 ng/ml (6.9-282.5)
[2017-01-02] MEDS: PANTOPRAZOLE SODIUM 40 MG VIAL IVPUSH SCH ×2 (09:56→21:17)
[2017-01-02] MEDS: LEVOTHYROXINE SODIUM 100 MCG VIAL IVPUSH SCH (09:57)
--- NOTE | 2017-01-02 10:47 | PN ---
Progress Note, Physician Chief Complaint: weakness and melena History of Present Illness: NAD, in bed receieved 3 units PRBC yesterday H/H improved seen by GI and hematology awaiting transfer to [facility] - Current Medication List Current Medications: Active Medications Levothyroxine Sodium (Synthroid Injection -) 50 mcg IVPUSH DAILY [facility] Last Admin: 01/02/17 09:57 Dose: 50 mcg Ondansetron HCl (Zofran Injection) 8 mg IVPB Q6H PRN PRN Reason: NAUSEA Last Admin: 01/01/17 01:45 Dose: 8 mg Pantoprazole Sodium (Protonix Iv) 40 mg IVPUSH BID [facility] Last Admin: 01/02/17 09:56 Dose: 40 mg - Objective Vital Signs: Vital Signs Temperature 97.7 F 01/02/17 07:45 Pulse Rate 95 H 01/02/17 07:45 Respiratory Rate 20 01/02/17 07:45 Blood Pressure 109/64 01/02/17 07:45 O2 Sat by Pulse Oximetry (%) 97 01/01/17 21:00 Constitutional: Yes: Well Nourished, No Distress, Calm Cardiovascular: Yes: Regular Rate and Rhythm Respiratory: Yes: Regular Labs: CBC, BMP 01/02/17 07:45 01/02/17 07:45 INR, PTT INR 1.34 (0.82-1.09) H 01/02/17 07:45 Fibrinogen 504.0 mg/dL (238-498) H 01/02/17 07:45 Problem List - Problems (1) Anemia Assessment/Plan: -Acute GI bleed? vs liver dz vs ESRD -received 3 units of PRBC, feels much better -H/H improved -seen by GI Code(s): D64.9 - ANEMIA, UNSPECIFIED (2) ESRD on hemodialysis Assessment/Plan: -renal: Preeti Cheema MD -[facility] schedule -had dialysis yesterday -BUN/cr acceptable range Code(s): N18.6 - END STAGE RENAL DISEASE Z99.2 - DEPENDENCE ON RENAL DIALYSIS (3) Multiple myeloma Code(s): C90.00 - MULTIPLE MYELOMA NOT HAVING ACHIEVED REMISSION (4) Liver disease Assessment/Plan: -milldly icteric CMP Sodium 140 mmol/L (136-145) 01/02/17 07:45 Potassium 3.7 mmol/L (3.5-5.1) D 01/02/17 07:45 Chloride 98 mmol/L (98-107) 01/02/17 07:45 Carbon Dioxide 29 mmol/L (21-32) D 01/02/17 07:45 Anion Gap 13 (8-16) 01/02/17 07:45 BUN 52 mg/dL (7-18) H D 01/02/17 07:45 Creatinine 4.1 mg/dL (0.55-1.02) H D 01/02/17 07:45 Creat Clearance w eGFR 11.38 (>60) 01/02/17 07:45 Random Glucose 80 mg/dL (74-106) 01/02/17 07:45 Calcium 9.7 mg/dL (8.5-10.1) 01/02/17 07:45 Phosphorus 5.9 mg/dL (2.5-4.9) H 01/01/17 07:40 Ferritin 6668.017 ng/ml (6.9-282.5) H 01/02/17 07:45 Total Bilirubin 1.7 mg/dL (0.2-1.0) H D 01/02/17 07:45 AST 553 U/L (15-37) H D 01/02/17 07:45 ALT 287 U/L (12-78) H D 01/02/17 07:45 Alkaline Phosphatase 1182 U/L (45-117) H 01/02/17 07:45 Creatine Kinase 54 IU/L (26-192) 12/31/16 19:20 Troponin I 0.19 ng/ml (0.00-0.05) H 12/31/16 19:20 Total Protein 5.7 g/dl (6.4-8.2) L 01/02/17 07:45 Albumin 2.8 g/dl (3.4-5.0) L 01/02/17 07:45 Vitamin B12 Cancelled 01/02/17 10:45 Serum Folate 14 ng/ml (3.1-17.5) D 01/02/17 07:45 TSH 2.76 uIU/ml (0.358-3.74) D 01/02/17 07:45 -U/S abd shows free fluid, indicating ascitis Code(s): K76.9 - LIVER DISEASE, UNSPECIFIED Assessment/Plan see problem list. Spoke to Morgan at Transfer center at [facility] at [phone], awaiting bed for the patient. may be available later this evening. Tsering-guide cruisemechanical planner at on the floor notified.
--- NOTE | 2017-01-02 15:57 | PN ---
Progress Note (short form) - Note Progress Note: Renal follow up for ESRD on HD PT seen and examined at the bedside awake and alert no sob, chest pain s/p dialysis with blood transfusion yesterday Vital Signs Temperature 98.2 F 01/02/17 15:21 Pulse Rate 82 01/02/17 15:21 Respiratory Rate 16 01/02/17 15:21 Blood Pressure 122/74 01/02/17 15:21 O2 Sat by Pulse Oximetry (%) 97 01/02/17 09:00 Intake & Output 12/30/16 12/31/16 01/01/17 01/02/17 23:59 23:59 23:59 23:59 Intake Total 175 785 590 Balance 175 785 590 Weight 99 lb 14.4 oz 98 lb 8 oz 94 lb 5 oz NAD awake and alert RRR CTA Abd soft NT No LE edema CBC, BMP 01/02/17 07:45 01/02/17 07:45 Current Medications Levothyroxine Sodium (Synthroid Injection -) 50 mcg IVPUSH DAILY [facility] Last Admin: 01/02/17 09:57 Dose: 50 mcg Ondansetron HCl (Zofran Injection) 8 mg IVPB Q6H PRN PRN Reason: NAUSEA Last Admin: 01/01/17 01:45 Dose: 8 mg Pantoprazole Sodium (Protonix Iv) 40 mg IVPUSH BID [facility] Last Admin: 01/02/17 09:56 Dose: 40 mg a/P 51 year old woman with PMhx of ERSD on HD (x 10 years) sarcoidosis, HTN,, multiple myeloma, hypothyroidism, dyspnea, s/p autologous SCT (2016), s/p aortic valve replacement (2014) presented with melena and loose stools. #ESRD on HD with hyperkalemia and very high BUN/Cr s/p dialysis yesterday, tolerated it well next treatment planned for tomorrow #Anemia/GI Bleed Hgb with good response to PRBC continue supportive care awaiting transfer to [facility] [place]
[2017-01-03 06:06] LABS: SERUM IRON 75 ug/dL (27-159); TOTAL IRON BINDING CAPACITY 209 ug/dL (250-450); UIBC 134 ug/dL (131-425)
--- NOTE | 2017-01-03 08:22 | DS ---
Physical Examination Vital Signs: Vital Signs Temperature 98 F 01/03/17 07:45 Pulse Rate 92 H 01/03/17 07:45 Respiratory Rate 20 01/03/17 07:45 Blood Pressure 123/74 01/03/17 07:45 O2 Sat by Pulse Oximetry (%) 97 01/02/17 21:00 Findings/Remarks: COMFORTABLE IN BED Cardiovascular: Yes: Regular Rate and Rhythm Respiratory: Yes: Regular, CTA Bilaterally Gastrointestinal: Yes: Normal Bowel Sounds, Soft Labs: CBC, BMP 01/02/17 07:45 01/02/17 07:45 Discharge Summary Reason For Visit: ESRD ANEMIA Current Active Problems Abnormal endoscopy of upper gastrointestinal tract (Acute) Anemia (Acute) ESRD on hemodialysis (Acute) History of biopsy (Acute) Liver disease (Acute) Hospital Course: The patient is a 51-year-old female with a significant past medical history of sarcoidosis, HTN, ESRD on dialysis, multiple myeloma, hypothyroidism, dyspnea, s /p autologous SCT (2016), s/p aortic valve replacement (2014), and presents to the emergency department complaining of black tarry stools and weakness for 5 days. Patient reports she had an upper endoscopy 6 days ago at [facility] with biopsies of the liver, esophagus, pancreas, and duodenum, and was told she is expected to have bleeding for 7 days. She states she went to the bathroom 3 times today with black stools and developed weakness today, prompting her to come to the ER. IN ER found to have h/h 5.4/17.3 got 2 units prbc History Source: Patient, Medical Record - Past Medical History Cardiovascular: Yes: HTN, Murmur Pulmonary: Yes: Other (SOB) Renal/: Yes: Renal Failure, Hemodialysis ...LMP: 01/01/08 ...: No Heme/Onc: Yes: Anemia, Myeloproliferative Synd Infectious Disease: Yes: C-Diff - Past Surgical History Past Surgical History: Yes: AV Fistula/Graft (s/p unsuccessful AVF thrombectomy and Permacath placement 2 weeks ago. S/p angioplasty 12/24/[address] Marshall), CABG (s/p AVR 11/19/14 at [place]), - Problems (1) Anemia Assessment/Plan: -Acute GI bleed? vs liver dz vs ESRD -received 3 units of PRBC, feels much better -H/H improved -seen by GI Code(s): D64.9 - ANEMIA, UNSPECIFIED (2) ESRD on hemodialysis Assessment/Plan: -renal: Preeti Cheema MD -[facility] schedule -had dialysis yesterday -BUN/cr acceptable range Code(s): N18.6 - END STAGE RENAL DISEASE Z99.2 - DEPENDENCE ON RENAL DIALYSIS (3) Multiple myeloma Code(s): C90.00 - MULTIPLE MYELOMA NOT HAVING ACHIEVED REMISSION (4) Liver disease Assessment/Plan: -milldly icteric CMP Sodium 140 mmol/L (136-145) 01/02/17 07:45 Potassium 3.7 mmol/L (3.5-5.1) D 01/02/17 07:45 Chloride 98 mmol/L (98-107) 01/02/17 07:45 Carbon Dioxide 29 mmol/L (21-32) D 01/02/17 07:45 Anion Gap 13 (8-16) 01/02/17 07:45 BUN 52 mg/dL (7-18) H D 01/02/17 07:45 Creatinine 4.1 mg/dL (0.55-1.02) H D 01/02/17 07:45 Creat Clearance w eGFR 11.38 (>60) 01/02/17 07:45 Random Glucose 80 mg/dL (74-106) 01/02/17 07:45 Calcium 9.7 mg/dL (8.5-10.1) 01/02/17 07:45 Phosphorus 5.9 mg/dL (2.5-4.9) H 01/01/17 07:40 Ferritin 6668.017 ng/ml (6.9-282.5) H 01/02/17 07:45 Total Bilirubin 1.7 mg/dL (0.2-1.0) H D 01/02/17 07:45 AST 553 U/L (15-37) H D 01/02/17 07:45 ALT 287 U/L (12-78) H D 01/02/17 07:45 Alkaline Phosphatase 1182 U/L (45-117) H 01/02/17 07:45 Creatine Kinase 54 IU/L (26-192) 12/31/16 19:20 Troponin I 0.19 ng/ml (0.00-0.05) H 12/31/16 19:20 Total Protein 5.7 g/dl (6.4-8.2) L 01/02/17 07:45 Albumin 2.8 g/dl (3.4-5.0) L 01/02/17 07:45 Vitamin B12 Cancelled 01/02/17 10:45 Serum Folate 14 ng/ml (3.1-17.5) D 01/02/17 07:45 TSH 2.76 uIU/ml (0.358-3.74) D 01/02/17 07:45 -U/S abd shows free fluid, indicating ascitis Code(s): K76.9 - LIVER DISEASE, UNSPECIFIED Assessment/Plan see problem list. Spoke to Morgan at Transfer center at [facility] at [phone], awaiting bed for the patient. may be available later this evening. Tsering-oral surgery technicianland planner at on the floor notified. - Instructions Referrals: Bea Munguia MD [Primary Care Provider] - - Home Medications Comprehensive Discharge Medication List: Ambulatory Orders Hydralazine HCl [Apresoline -] 50 mg PO BID 10/16/11 Levothyroxine [Synthroid -] 100 mcg PO DAILY 12/25/14 Metoprolol Tartrate 50 mg PO BID 12/25/14 Ipratropium/Albuterol Sulfate [Combivent Respimat Inhal [place]] 4 gm IH QID #1 aer.w.adap 09/02/16 Sevelamer Carbonate [Renvela -] 800 mg PO TIDCM #90 tab 09/02/16 Acyclovir [Zovirax -] 400 mg PO BID 12/31/16 Atorvastatin Ca [Lipitor] 10 mg PO DAILY 12/31/16 Budesonide/Formeterol Fumarate [SYMBICORT 160/4.5mcg -] 1 inh PO DAILY 12/31/16 Chlorpheniramine Maleate 4 mg PO HS 12/31/16 Cinacalcet HCl [Sensipar] 60 mg PO DAILY 12/31/16 Dexamethasone 20 mg PO WEEKLY 12/31/16 Fluticasone Prop 0.05% Nasal [Flonase -] 1 - 2 spray NS DAILY 12/31/16 Ixazomib Citrate [Ninlaro] 3 mg PO WEEKLY 12/31/16
[2017-01-03] MEDS ORDERED: DEXAMETHASONE 4 MG TABLET (FP) PO SCH (08:30)
[2017-01-03] MEDS ORDERED: IXAZOMIB CITRATE 3 MG PO SCH (08:30)
[2017-01-03] MEDS ORDERED: PT OWN MED DRAWER 7, Y5N ONE (08:59)
[2017-01-03] MEDS ORDERED: EPOETIN ALFA 20,000 UNIT/1 ML VIAL IVPUSH ONE (09:00)
[2017-01-03] MEDS ORDERED: METOPROLOL TARTRATE 50 MG TABLET (FP) PO SCH (10:00)
[2017-01-03] MEDS ORDERED: CINACALCET HCL 30 MG TAB (FP) PO SCH (10:00)
[2017-01-03] MEDS ORDERED: ACYCLOVIR 400 MG TABLET PO SCH (10:00)
[2017-01-03] MEDS ORDERED: BUDESONIDE/FORMETEROL FUMARATE 160/4.5 mcg INHALER IH SCH (10:00)
[2017-01-03] MEDS ORDERED: TIOTROPIUM BROMIDE 18 MCG/INH (DEVICE W/ 5 CAPSULES) IH SCH (10:00)
[2017-01-03] MEDS ORDERED: hydrALAZINE HCL 50 MG TABLET (FP) PO SCH (10:00)
[2017-01-03 10:26] LABS: MCH 30.5 pg (25.7-33.7); MCHC 33.4 g/dl (32.0-36.0); MEAN CELL VOLUME 91.4 fl (80-96); MEAN PLT VOLUME 8.8 fl (7.5-11.1); PLATELET COUNT 58 K/MM3 (134-434); RDW 20.3 % (11.6-15.6)
[2017-01-03 10:44] LABS: ALBUMIN 2.6 g/dl (3.4-5.0); ANION GAP 12 (8-16); BILIRUBIN,TOTAL 1.6 mg/dL (0.2-1.0); CO2 29 mmol/L (21-32); CREATININE 5.7 mg/dL (0.55-1.02); GLUCOSE,RANDOM 73 mg/dL (74-106); PHOSPHOROUS 6.7 mg/dL (2.5-4.9); SGOT/AST 232 U/L (15-37); SGPT/ALT 171 U/L (12-78); TOT PROT 5.4 g/dl (6.4-8.2)
[2017-01-03 10:57] LABS: ALK PHOS 1048 U/L (45-117)
[2017-01-03] MEDS ORDERED: SEVELAMER CARBONATE 800 MG TAB (FP) PO SCH ×2 (12:00)
[2017-01-03 13:56] VITALS: PULSE 80
[2017-01-03] MEDS: PANTOPRAZOLE SODIUM 40 MG VIAL IVPUSH SCH (13:58)
[2017-01-03] MEDS: LEVOTHYROXINE SODIUM 100 MCG VIAL IVPUSH SCH (13:59)
[2017-01-03 15:32] VITALS: BP 112/78; TEMP 98.2
[2017-01-03 15:52] LABS: CREATININE 1.7 mg/dL (0.55-1.02)
--- NOTE | 2017-01-03 21:10 | PN ---
Progress Note (short form) - Note Progress Note: Renal follow up for ESRD on HD PT seen and examined during dialysis today no acute complaints BP stable, AVF with good flow Hgb stable had a BM today which was brown Vital Signs Temperature 98.2 F 01/03/17 15:30 Pulse Rate 80 01/03/17 15:30 Respiratory Rate 18 01/03/17 15:30 Blood Pressure 112/78 01/03/17 15:30 O2 Sat by Pulse Oximetry (%) 97 01/03/17 09:00 Intake & Output 12/31/16 01/01/17 01/02/17 01/03/17 23:59 23:59 23:59 23:59 Intake Total 175 785 590 540 Balance 175 785 590 540 Weight 99 lb 14.4 oz 98 lb 8 oz 94 lb 5 oz 95 lb 1 oz NAD awake and alert RRR CTA Abd soft NT No LE edema CBC, BMP 01/03/17 09:50 01/03/17 14:20 a/P 51 year old woman with PMhx of ERSD on HD (x 10 years) sarcoidosis, HTN,, multiple myeloma, hypothyroidism, dyspnea, s/p autologous SCT (2016), s/p aortic valve replacement (2014) presented with melena and loose stools. #ESRD on HD with hyperkalemia and very high BUN/Cr tolerating dialysis well continue HD as inpatient on MWF schedule #Anemia/GI Bleed Hgb stable GI following for transfer to tertiary care center Mc Hawkins DO
[2017-01-03] MEDS ORDERED: ATORVASTATIN CA 10 MG TABLET (FP) PO SCH (22:00)
== END 2017-01-03 15:32 | disposition short-term general hospital (02) | DRG 919 ==
LOC: JER 15:20 → JERBED 20:25 → J8W 23:52
PROVIDERS: ADMIT Family Medicine; ATTEND Family Medicine
PROC: 30233N1 Transfusion of Nonautologous Red Blood Cells into Peripheral Vein, Percutaneous Approach (ICD-10-PCS; 2016-12-31)
PROC: 5A1D70Z Performance of Urinary Filtration, Intermittent, Less than 6 Hours Per Day (ICD-10-PCS; principal; 2017-01-01)
PROC: 30233K1 Transfusion of Nonautologous Frozen Plasma into Peripheral Vein, Percutaneous Approach (ICD-10-PCS; 2017-01-01)
DX: K91.840 Postprocedural hemorrhage of a digestive system organ or structure following a digestive system procedure (principal); N18.6 End stage renal disease; I12.0 Hypertensive chronic kidney disease with stage 5 chronic kidney disease or end stage renal disease; Q45.3 Other congenital malformations of pancreas and pancreatic duct; C90.00 Multiple myeloma not having achieved remission; R18.8 Other ascites; Z94.84 Stem cells transplant status; Z68.1 Body mass index [BMI] 19.9 or less, adult; Y83.8 Other surgical procedures as the cause of abnormal reaction of the patient, or of later complication, without mention of misadventure at the time of the procedure; E03.8 Other specified hypothyroidism; K76.9 Liver disease, unspecified; D86.89 Sarcoidosis of other sites; D64.9 Anemia, unspecified; R16.0 Hepatomegaly, not elsewhere classified; E87.5 Hyperkalemia; Z95.1 Presence of aortocoronary bypass graft; Z99.2 Dependence on renal dialysis; Z95.2 Presence of prosthetic heart valve
CPT/HCPCS: 36415; 36430; 71020-TC; 76705-TC; 80053; 82550; 82565; 82607; 82728; 82746; 83540; 83550; 84100; 84443; 84484; 84520; 85025; 85027; 85384; 85610; 85730; 86704; 86706; 86708; 86803; 86850; 86900; 86901; 86922; 87340; 93005; 93010; 99285-25; J0885; P9017; P9038; P9058